=== PATIENT | female | born 1985 | race Caucasian/White ===

== ENCOUNTER 2017-06-28 08:25 | Emergency (ER) | payer OTHER ==
[2017-06-28 08:30] VITALS: BP 121/66; PULSE 96; RESP 16; TEMP 97.5
[2017-06-28] MEDS ORDERED: ACETAMINOPHEN IV (For NPO) 1,000 MG in EMPTY BAG 1 BAG IVPB STA (08:43)
[2017-06-28] MEDS ORDERED: SODIUM CHLORIDE 0.9% 1,000 ML IV STA (08:43)
--- NOTE | 2017-06-28 08:45 | ED ---
General Adult HPI - General Chief complaint: Vaginal Bleeding Stated complaint: Vaginal Bleeding Time Seen by Provider: 06/28/17 08:39 Source: patient, RN notes reviewed Mode of arrival: ambulatory Limitations: no limitations - History of Present Illness Initial comments: patient 31-year-old female who presents emergency room today with a chief complaint of vaginal bleeding 3 months. She does admit that she had a miscarriage. She states she was seen at [facility] at the time. She states that she was never able to follow-up with OB. She states been bleeding since that time. She states the last few days she's noticed some symptoms of dysuria. She states it hurts when she urinates. She has began to feel some lower back discomfort that is increased last night into this morning. Patient denies any other complaints or symptoms. Patient denies any recent fever, chills, shortness of breath, chest pain, vomiting, numbness or tingling, constipation or diarrhea, headaches or visual changes, or any other complaints. - Related Data Home Medications Medication Instructions Recorded Confirmed Control 1 tab PO DAILY 06/28/17 06/28/17 Diazepam [Valium] 10 mg PO DAILY PRN 06/28/17 06/28/17 PARoxetine [Paxil] 20 mg PO DAILY 06/28/17 06/28/17 hydrOXYzine PAMOATE [Vistaril] 50 mg PO HS 06/28/17 06/28/17 Previous Rx's Medication Instructions Recorded Ibuprofen [Motrin] 600 mg PO Q6HR PRN #40 day 06/28/17 Allergies Allergy/AdvReac Type Severity Reaction Status Date / Time No Known Allergies Allergy Verified 06/28/17 08:58 Review of Systems ROS Statement: Those systems with pertinent positive or pertinent negative responses have been documented in the HPI. ROS Other: All systems not noted in ROS Statement are negative. Past Medical History Past Medical History: Hypertension, Thyroid Disorder History of Any Multi-Drug Resistant Organisms: None Reported Past Surgical History: Tonsillectomy Past Psychological History: Anxiety Smoking Status: Current every day smoker Past Alcohol Use History: None Reported Past Drug Use History: Marijuana General Exam - General Exam Comments Initial Comments: General: The patient is awake and alert, in no distress, and does not appear acutely ill. Eye: Pupils are equal, round and reactive to light, extra-ocular movements are intact. No nystagmus. There is normal conjunctiva bilaterally. No signs of icterus. Ears, nose, mouth and throat: There are moist mucous membranes and no oral lesions. Neck: The neck is supple, there is no tenderness or JVD. Cardiovascular: There is a regular rate and rhythm. No murmur, rub or gallop is appreciated. Respiratory: Lungs are clear to auscultation, respirations are non-labored, breath sounds are equal. No wheezes, stridor, rales, or rhonchi. Gastrointestinal: neuro appears them. Normal bowel sounds. Soft on palpation. Patient does have tenderness suprapubic left lower quadrant. No rebound tenderness. Tender left right CVA. No guarding. Musculoskeletal: Normal ROM, no tenderness. Strength 5/5. Sensation intact. Pulses equal bilaterally 2+. Neurological: A&O x 3. CN II-XII intact, There are no obvious motor or sensory deficits. Coordination appears grossly intact. Speech is normal. Skin: Skin is warm and dry and no rashes or lesions are noted. Psychiatric: Cooperative, appropriate mood & affect, normal judgment. Limitations: no limitations Course Vital Signs 06/28/17 08:26 Temperature 97.5 F L Pulse Rate 96 Respiratory 16 Rate Blood Pressure 121/66 O2 Sat by Pulse 100 Oximetry Medical Decision Making - Medical Decision Making Patient's labs been reviewed are unremarkable. Patient's ultrasound shows over and cyst on the left. No sign of torsion. Patient urinalysis does show some blood. She said some vaginal bleeding. There is no sign of infection. Patient resting comfortably. She feels couple following up with AUTOMATIC DRILLING MACHINE OPERATOR. Patient. To return if symptoms increase or worsen or for any other concerns. - Lab Data Result diagrams: 06/28/17 09:06 06/28/17 09:06 Lab Results 06/28/17 06/28/17 06/28/17 Range/Units 09:06 09:06 09:06 WBC 8.4 (3.8-10.6) k/uL RBC 4.49 (3.80-5.40) m/uL Hgb 11.7 (11.4-16.0) gm/dL Hct 37.4 (34.0-46.0) % MCV 83.2 (80.0-100.0) fL MCH 26.0 (25.0-35.0) pg MCHC 31.3 (31.0-37.0) g/dL RDW 16.6 H (11.5-15.5) % Plt Count 329 (150-450) k/uL Neutrophils % 76 % Lymphocytes % 18 % Monocytes % 4 % Eosinophils % 1 % Basophils % 0 % Neutrophils # 6.3 (1.3-7.7) k/uL Lymphocytes # 1.5 (1.0-4.8) k/uL Monocytes # 0.3 (0-1.0) k/uL Eosinophils # 0.1 (0-0.7) k/uL Basophils # 0.0 (0-0.2) k/uL Anisocytosis Slight Sodium 141 (137-145) mmol/L Potassium 4.0 (3.5-5.1) mmol/L Chloride 111 H (98-107) mmol/L Carbon Dioxide 21 L (22-30) mmol/L Anion Gap 9 mmol/L BUN 16 (7-17) mg/dL Creatinine 0.64 (0.52-1.04) mg/dL Est GFR (MDRD) Af Amer >60 (>60 ml/min/1.73 sqM) Est GFR (MDRD) Non-Af >60 (>60 ml/min/1.73 sqM) Glucose 101 H (74-99) mg/dL Calcium 9.8 (8.4-10.2) mg/dL Total Bilirubin 0.2 (0.2-1.3) mg/dL AST 22 (14-36) U/L ALT 16 (9-52) U/L Alkaline Phosphatase 61 (38-126) U/L Total Protein 7.5 (6.3-8.2) g/dL Albumin 4.4 (3.5-5.0) g/dL Lipase 68 (23-300) U/L Urine Color Urine Appearance (Clear) Urine pH (5.0-8.0) Ur Specific [place] (1.001-1.035) Urine Protein (Negative) Urine Glucose (UA) (Negative) Urine Ketones (Negative) Urine Blood (Negative) Urine Nitrite (Negative) Urine Bilirubin (Negative) Urine Urobilinogen (<2.0) mg/dL Ur Leukocyte Esterase (Negative) Urine RBC (0-5) /hpf Urine WBC (0-5) /hpf Ur Squamous Epith Cells (0-4) /hpf Urine Mucus (None) /hpf Urine HCG, Qual Not Detected (Not Detectd) 06/28/17 Range/Units 09:06 WBC (3.8-10.6) k/uL RBC (3.80-5.40) m/uL Hgb (11.4-16.0) gm/dL Hct (34.0-46.0) % MCV (80.0-100.0) fL MCH (25.0-35.0) pg MCHC (31.0-37.0) g/dL RDW (11.5-15.5) % Plt Count (150-450) k/uL Neutrophils % % Lymphocytes % % Monocytes % % Eosinophils % % Basophils % % Neutrophils # (1.3-7.7) k/uL Lymphocytes # (1.0-4.8) k/uL Monocytes # (0-1.0) k/uL Eosinophils # (0-0.7) k/uL Basophils # (0-0.2) k/uL Anisocytosis Sodium (137-145) mmol/L Potassium (3.5-5.1) mmol/L Chloride (98-107) mmol/L Carbon Dioxide (22-30) mmol/L Anion Gap mmol/L BUN (7-17) mg/dL Creatinine (0.52-1.04) mg/dL Est GFR (MDRD) Af Amer (>60 ml/min/1.73 sqM) Est GFR (MDRD) Non-Af (>60 ml/min/1.73 sqM) Glucose (74-99) mg/dL Calcium (8.4-10.2) mg/dL Total Bilirubin (0.2-1.3) mg/dL AST (14-36) U/L ALT (9-52) U/L Alkaline Phosphatase (38-126) U/L Total Protein (6.3-8.2) g/dL Albumin (3.5-5.0) g/dL Lipase (23-300) U/L Urine Color Yellow Urine Appearance Cloudy H (Clear) Urine pH 6.5 (5.0-8.0) Ur Specific [place] 1.024 (1.001-1.035) Urine Protein 1+ H (Negative) Urine Glucose (UA) Negative (Negative) Urine Ketones Trace H (Negative) Urine Blood Large H (Negative) Urine Nitrite Negative (Negative) Urine Bilirubin Negative (Negative) Urine Urobilinogen 2.0 (<2.0) mg/dL Ur Leukocyte Esterase Negative (Negative) Urine RBC 62 H (0-5) /hpf Urine WBC 1 (0-5) /hpf Ur Squamous Epith Cells 8 H (0-4) /hpf Urine Mucus Occasional H (None) /hpf Urine HCG, Qual (Not Detectd) Disposition Clinical Impression: Dysfunctional uterine bleeding Disposition: HOME SELF-CARE Condition: Good Instructions: Dysfunctional Uterine Bleeding (ED) Additional Instructions: Please use medication as discussed. Please follow-up with AUTOMATIC DRILLING MACHINE OPERATOR/family doctor in the next 2 days of symptoms have not improved. Please return to emergency room if the symptoms increase or worsen or for any other concerns. Prescriptions: Ibuprofen [Motrin] 600 mg PO Q6HR PRN #40 day PRN Reason: Pain Referrals: Tomas Mcfarland MD [Primary Care Provider] - 1-2 days Serena Ramirez DO [Doctor of Osteopathic Medicine] - 1-2 days Time of Disposition: 10:22
[2017-06-28 09:16] LABS: Anisocytosis Slight; Basophils % (A) 0 %; CH 26.1; CHCM 31.6; Eosinophils # (A) 0.1 k/uL (0-0.7); Eosinophils % (A) 1 %; HCT 37.4 % (34.0-46.0); HDW 2.38; HGB 11.7 gm/dL (11.4-16.0); Luc # (Auto) 0.12; Luc % (Auto) 1; Lymphocytes # (A) 1.5 k/uL (1.0-4.8); Lymphocytes % (A) 18 %; MCHC 31.3 g/dL (31.0-37.0); MCV 83.2 fL (80.0-100.0); Mean Platelet Volume 7.8; Monocytes # (A) 0.3 k/uL (0-1.0); Monocytes % (A) 4 %; Neutrophils # (A) 6.3 k/uL (1.3-7.7); Neutrophils % (A) 76 %; RBC 4.49 m/uL (3.80-5.40); RDW 16.6 % (11.5-15.5); WBC 8.4 k/uL (3.8-10.6); WBC (Perox) 8.44
[2017-06-28 09:25] LABS: ALT 16 U/L (9-52); AST 22 U/L (14-36); Alkaline Phosphatase 61 U/L (38-126); Anion Gap 9 mmol/L; Blood Urea Nitrogen 16 mg/dL (7-17); Calcium 9.8 mg/dL (8.4-10.2); Carbon Dioxide 21 mmol/L (22-30); Chloride 111 mmol/L (98-107); Glucose 101 mg/dL (74-99); Non-African American GFR(MDRD) >60 (>60 ml/min/1.73 sqM); Sodium 141 mmol/L (137-145); Total Bilirubin 0.2 mg/dL (0.2-1.3); Total Protein 7.5 g/dL (6.3-8.2)
[2017-06-28 09:27] LABS: Appearance,Urine Cloudy (Clear); Bilirubin,Urine Negative (Negative); Glucose,Urine (UA) Negative (Negative); Ketones,Urine Trace (Negative); Leukocyte Esterase,Urine Negative (Negative); Mucus,Urine Occasional /hpf; Nitrite,Urine Negative (Negative); PH, Urine 6.5 (5.0-8.0); Particle Count 5138; Protein,Urine 1+ (Negative); RBC,Urine 62 /hpf (0-5); Specific Gravity,Urine 1.024 (1.001-1.035); Squamous Epithelial Cell,Urine 8 /hpf (0-4); UA Billing (MACRO vs. MICRO) MICRO; WBC,Urine 1 /hpf (0-5)
--- NOTE | 2017-06-28 10:13 | US ---
EXAMINATION TYPE: US transvaginal DATE OF EXAM: 06/28/2017 COMPARISON: Previous dated 07/18/2017 CLINICAL HISTORY: pain. Patient states having a miscarriage x 3 months ago- no D&C Patient states st arting control after the bleeding as stopped for 2 days. Patient states bleeding every morning since miscarriage but more so today. TECHNIQUE: Transvaginal (TV) Date of LMP: Unknown EXAM MEASUREMENTS: Uterus: 7.0 x 3.8 x 3.3 cm Endometrial Stripe: 0.4 cm Right Ovary: 2.8 x 1.8 x 1.7 cm Left Ovary: 4.5 x 2.9 x 2.5 cm 1. Uterus: Anteverted wnl 2. Endometrium: wnl 3. Right Ovary: Follicles seen 4. Left Ovary: cystic appearing lesion identified = 3.3 x 3.1 x 2.2 cm Spectral, color and waveform doppler imaging shows good arterial and venous flow within the ovaries ; there is no evidence for ovarian torsion. 5. Bilateral Adnexa: wnl, peristalsing bowel gas 6. Posterior cul-de-sac: no free fluid IMPRESSION: There is been interval development of a large cystic left ovarian lesion. Some internal d aughter cysts suspected. Consider CONSUMER AFFAIRS MANAGER consult, follow-up.
== END 2017-06-28 10:30 | disposition home or self-care (01) ==
LOC: EC 08:25
DX: N93.8 Other specified abnormal uterine and vaginal bleeding (principal); N83.202 Unspecified ovarian cyst, left side; R30.0 Dysuria; I10 Essential (primary) hypertension; E07.9 Disorder of thyroid, unspecified; F41.9 Anxiety disorder, unspecified; F17.200 Nicotine dependence, unspecified, uncomplicated; Z79.3 Long term (current) use of hormonal contraceptives; Z79.899 Other long term (current) drug therapy
CPT/HCPCS: 36415; 80053; 83690; 85025; 81001; 81025; 87086; 93975; 76830; 99284; 96365; 96361; J0131

== ENCOUNTER 2017-08-14 10:25 | Emergency (ER) | payer OTHER ==
[2017-08-14 10:30] VITALS: PULSE 68
[2017-08-14] MEDS ORDERED: SODIUM CHLORIDE 0.9% 500 ML IV STA (10:55)
[2017-08-14] MEDS ORDERED: KETOROLAC 30 MG/ML 1 ML VIAL IVP STA (10:55)
--- NOTE | 2017-08-14 11:08 | ED ---
General Adult HPI - General Chief complaint: Abdominal Pain Stated complaint: Ovary pain Time Seen by Provider: 08/14/17 10:31 Source: patient, RN notes reviewed Mode of arrival: ambulatory Limitations: no limitations - History of Present Illness Initial comments: 31-year-old female presents for left lower quadrant pelvic pain. Patient states that she was seen here about a month ago and was diagnosed with a cyst on her left ovary. Patient states that her pain was doing okay but then over the last few days seems to be worsening. It just discontinued pain to the left lower quadrant. She states is been no nausea no vomiting no fever chills with this. There's been no cough cold or runny nose. Patient is just continued to have this discomfort so she thought that she should be evaluated. Patient denies any recent fever, chills, shortness of breath, chest pain, back pain, nausea vomiting, numbness or tingling, dysuria or hematuria, constipation or diarrhea, headaches or visual changes, or any other current symptoms. - Related Data Home Medications Medication Instructions Recorded Confirmed Diazepam [Valium] 5 mg PO DAILY PRN 06/28/17 08/14/17 PARoxetine [Paxil] 20 mg PO DAILY 06/28/17 08/14/17 hydrOXYzine PAMOATE [Vistaril] 50 mg PO HS 06/28/17 08/14/17 Previous Rx's Medication Instructions Recorded Dicyclomine [Bentyl] 10 mg PO TID #20 capsule 08/14/17 Allergies Allergy/AdvReac Type Severity Reaction Status Date / Time No Known Allergies Allergy Verified 08/14/17 10:58 Review of Systems ROS Statement: Those systems with pertinent positive or pertinent negative responses have been documented in the HPI. ROS Other: All systems not noted in ROS Statement are negative. Past Medical History Past Medical History: Hypertension, Thyroid Disorder History of Any Multi-Drug Resistant Organisms: None Reported Past Surgical History: Tonsillectomy Past Psychological History: Anxiety Smoking Status: Current every day smoker Past Alcohol Use History: None Reported Past Drug Use History: Marijuana General Exam - General Exam Comments Initial Comments: General: The patient is awake and alert, in no distress, and does not appear acutely ill. Eye: Pupils are equal, round and reactive to light. Ears, nose, mouth and throat: There are moist mucous membranes. Neck: The neck is supple, there is no tenderness. Cardiovascular: There is a regular rate and rhythm. No murmur, rub or gallop is appreciated. Respiratory: Lungs are clear to auscultation, respirations are non-labored, breath sounds are equal. No wheezes, stridor, rales, or rhonchi. Gastrointestinal: Soft, non-distended, tenderness in left lower quadrant of the abdomen without masses or organomegaly noted. There is no rebound or guarding present. No CVA tenderness. Bowel sounds are unremarkable. Back: There is no tenderness to palpation in the midline. There is no obvious deformity. No rashes noted. Musculoskeletal: Normal ROM, no tenderness, There is no pedal edema. There is no calf tenderness or swelling. Sensation intact. Pulses equal bilaterally 2+. Neurological: CN II-XII intact, There are no obvious motor or sensory deficits. Coordination appears grossly intact. Speech is normal. Skin: Skin is warm and dry and no rashes or lesions are noted. Psychiatric: Cooperative, appropriate mood & affect, normal judgment. Limitations: no limitations Course Vital Signs 08/14/17 10:27 Temperature 98 F Pulse Rate 68 Respiratory 16 Rate Blood Pressure 140/75 O2 Sat by Pulse 100 Oximetry Medical Decision Making - Medical Decision Making 31-year-old female presents for pelvic pain with history of ovarian cysts. At this time patient's ultrasound and CT are reviewed and negative. At this time we did discuss her results. We will send urine for culture. We did discuss return parameters and follow-up and all questions. The patient family stated the John they are in agreement this plan. All questions have been answered. They will be discharged. - Lab Data Result diagrams: 08/14/17 11:10 08/14/17 11:10 Lab Results 08/14/17 08/14/17 08/14/17 Range/Units 10:55 10:55 11:10 WBC 11.0 H (3.8-10.6) k/uL RBC 4.68 (3.80-5.40) m/uL Hgb 12.5 (11.4-16.0) gm/dL Hct 41.0 (34.0-46.0) % MCV 87.6 (80.0-100.0) fL MCH 26.7 (25.0-35.0) pg MCHC 30.5 L (31.0-37.0) g/dL RDW 15.6 H (11.5-15.5) % Plt Count 540 H (150-450) k/uL Neutrophils % 80 % Lymphocytes % 13 % Monocytes % 4 % Eosinophils % 1 % Basophils % 1 % Neutrophils # 8.7 H (1.3-7.7) k/uL Lymphocytes # 1.4 (1.0-4.8) k/uL Monocytes # 0.4 (0-1.0) k/uL Eosinophils # 0.1 (0-0.7) k/uL Basophils # 0.1 (0-0.2) k/uL Hypochromasia Slight Sodium (137-145) mmol/L Potassium (3.5-5.1) mmol/L Chloride (98-107) mmol/L Carbon Dioxide (22-30) mmol/L Anion Gap mmol/L BUN (7-17) mg/dL Creatinine (0.52-1.04) mg/dL Est GFR (MDRD) Af Amer (>60 ml/min/1.73 sqM) Est GFR (MDRD) Non-Af (>60 ml/min/1.73 sqM) Glucose (74-99) mg/dL Calcium (8.4-10.2) mg/dL Total Bilirubin (0.2-1.3) mg/dL AST (14-36) U/L ALT (9-52) U/L Alkaline Phosphatase (38-126) U/L Total Protein (6.3-8.2) g/dL Albumin (3.5-5.0) g/dL Urine Color Yellow Urine Appearance Clear (Clear) Urine pH 6.5 (5.0-8.0) Ur Specific [place] 1.019 (1.001-1.035) Urine Protein Negative (Negative) Urine Glucose (UA) Negative (Negative) Urine Ketones Negative (Negative) Urine Blood Negative (Negative) Urine Nitrite Negative (Negative) Urine Bilirubin Negative (Negative) Urine Urobilinogen <2.0 (<2.0) mg/dL Ur Leukocyte Esterase Negative (Negative) Urine HCG, Qual Not Detected (Not Detectd) 08/14/17 Range/Units 11:10 WBC (3.8-10.6) k/uL RBC (3.80-5.40) m/uL Hgb (11.4-16.0) gm/dL Hct (34.0-46.0) % MCV (80.0-100.0) fL MCH (25.0-35.0) pg MCHC (31.0-37.0) g/dL RDW (11.5-15.5) % Plt Count (150-450) k/uL Neutrophils % % Lymphocytes % % Monocytes % % Eosinophils % % Basophils % % Neutrophils # (1.3-7.7) k/uL Lymphocytes # (1.0-4.8) k/uL Monocytes # (0-1.0) k/uL Eosinophils # (0-0.7) k/uL Basophils # (0-0.2) k/uL Hypochromasia Sodium 142 (137-145) mmol/L Potassium 4.9 (3.5-5.1) mmol/L Chloride 108 H (98-107) mmol/L Carbon Dioxide 22 (22-30) mmol/L Anion Gap 12 mmol/L BUN 16 (7-17) mg/dL Creatinine 0.54 (0.52-1.04) mg/dL Est GFR (MDRD) Af Amer >60 (>60 ml/min/1.73 sqM) Est GFR (MDRD) Non-Af >60 (>60 ml/min/1.73 sqM) Glucose 90 (74-99) mg/dL Calcium 10.0 (8.4-10.2) mg/dL Total Bilirubin 0.4 (0.2-1.3) mg/dL AST 27 (14-36) U/L ALT 13 (9-52) U/L Alkaline Phosphatase 93 (38-126) U/L Total Protein 8.1 (6.3-8.2) g/dL Albumin 4.7 (3.5-5.0) g/dL Urine Color Urine Appearance (Clear) Urine pH (5.0-8.0) Ur Specific [place] (1.001-1.035) Urine Protein (Negative) Urine Glucose (UA) (Negative) Urine Ketones (Negative) Urine Blood (Negative) Urine Nitrite (Negative) Urine Bilirubin (Negative) Urine Urobilinogen (<2.0) mg/dL Ur Leukocyte Esterase (Negative) Urine HCG, Qual (Not Detectd) - Radiology Data Radiology results: report reviewed, image reviewed Disposition Clinical Impression: Left sided abdominal pain Disposition: HOME SELF-CARE Condition: Stable Instructions: Abdominal Pain (ED) Additional Instructions: Please use medication as discussed. Please follow up with family doctor if symptoms have not improved over the next two days. Please return to the emergency room if your symptoms increase or worsen or for any other concerns. Prescriptions: Dicyclomine [Bentyl] 10 mg PO TID #20 capsule Referrals: Tomas Mcfarland MD [Primary Care Provider] - 1-2 days Time of Disposition: 13:28
[2017-08-14 11:28] LABS: Appearance,Urine Clear (Clear); Bilirubin,Urine Negative (Negative); Blood,Urine Negative (Negative); Color,Urine Yellow; Glucose,Urine (UA) Negative (Negative); Ketones,Urine Negative (Negative); Leukocyte Esterase,Urine Negative (Negative); Nitrite,Urine Negative (Negative); PH, Urine 6.5 (5.0-8.0); Protein,Urine Negative (Negative); Specific Gravity,Urine 1.019 (1.001-1.035); Urobilinogen,Urine <2.0 mg/dL (<2.0)
[2017-08-14 11:43] LABS: Basophils # (A) 0.1 k/uL (0-0.2); Basophils % (A) 1 %; Eosinophils # (A) 0.1 k/uL (0-0.7); Eosinophils % (A) 1 %; HGB 12.5 gm/dL (11.4-16.0); Hypochromasia Slight; Lymphocytes # (A) 1.4 k/uL (1.0-4.8); Lymphocytes % (A) 13 %; MCH 26.7 pg (25.0-35.0); MCHC 30.5 g/dL (31.0-37.0); MCV 87.6 fL (80.0-100.0); Mean Platelet Volume 6.5; Monocytes # (A) 0.4 k/uL (0-1.0); Monocytes % (A) 4 %; Neutrophils # (A) 8.7 k/uL (1.3-7.7); Neutrophils % (A) 80 %; Platelet Count 540 k/uL (150-450); RBC 4.68 m/uL (3.80-5.40); RDW 15.6 % (11.5-15.5)
[2017-08-14 11:46] LABS: ALT 13 U/L (9-52); AST 27 U/L (14-36); Albumin 4.7 g/dL (3.5-5.0); Alkaline Phosphatase 93 U/L (38-126); Anion Gap 12 mmol/L; Blood Urea Nitrogen 16 mg/dL (7-17); Carbon Dioxide 22 mmol/L (22-30); Chloride 108 mmol/L (98-107); Glucose 90 mg/dL (74-99); Potassium 4.9 mmol/L (3.5-5.1); Sodium 142 mmol/L (137-145); Total Bilirubin 0.4 mg/dL (0.2-1.3); Total Protein 8.1 g/dL (6.3-8.2)
--- NOTE | 2017-08-14 11:53 | US ---
EXAMINATION TYPE: US transvaginal DATE OF EXAM: 08/14/2017 COMPARISON: CLINICAL HISTORY: Pain. Left side pain, hx of O cyst TECHNIQUE: Transvaginal (TV) Date of LMP: 08/05/2017, EXAM MEASUREMENTS: Uterus: 7.3 x 4.0 x 3.3 cm Endometrial Stripe: 0.5 cm Right Ovary: 3.0 x 1.6 x 2.4 cm Left Ovary: 3.1 x 2.2 x 2.4 cm 1. Uterus: Anteverted wnl 2. Endometrium: wnl 3. Right Ovary: follicles seen. Largest= 1.3 cm. 4. Left Ovary: follicles seen. Previous cyst not seen. Spectral, color and waveform doppler imaging shows good arterial and venous flow within the ovaries ; there is no evidence for ovarian torsion. 5. Bilateral Adnexa: wnl 6. Posterior cul-de-sac: no free fluid IMPRESSION: Resolution of the previously seen left ovarian cysts. Bilateral follicular changes are se en of the ovaries with the largest most dominant follicle in the right measuring only 1.3 cm. No curr ent evidence of ovarian torsion.
[2017-08-14] MEDS ORDERED: RX INFO: IV CONTRAST WAS GIVEN 1 EACH MISC MISCELLANE PRN (12:12)
[2017-08-14] MEDS ORDERED: DICYCLOMINE 10 MG/ML 2 ML AMP IM STA (12:45)
--- NOTE | 2017-08-14 13:21 | CT ---
EXAMINATION TYPE: CT abdomen pelvis w con DATE OF EXAM: 08/14/2017 COMPARISON: NONE INDICATION: LLQ pain. Possible ovarian cyst. DLP: 386.70 mGycm, Automated exposure control for dose reduction was used. CONTRAST: 100 ml mL of Omnipaque 300. Study performed without Oral Contrast TECHNIQUE: Axial images were obtained from above the diaphragm to the pubic rami in the axial plane a t 5 mm thick sections. Reconstructed images are reviewed on the computer in the coronal plane. FINDINGS: Limited CT sections are obtained the lung bases. There is a right middle lobe infiltrate. Correlate for atelectasis. Pneumonia could be considered within the differential. Underlying mass at the infrah ilar regions not excluded but would be considered unusual. This should be followed to clearing.. CT ABDOMEN: Liver: Normal Spleen: Normal Pancreas: Normal Adrenal glands: The adrenal glands are normal. Gallbladder: Normal Kidneys: No masses are evident. No hydronephrosis is present. No cysts are present. Delayed images were obtained through the kidneys, which remain unremarkable. Aorta: Normal Inferior vena cava: Normal. CT PELVIS: Loops of bowel within the abdomen and pelvis are normal. Study is without oral contrast limiting the evaluation. Appendix: Not clearly identified. There is a possible partial visualization of the tip of the appendi x extending towards the right adnexal region. No suspicious tubular structures or inflammatory change s evident. Clinical management of any suspected appendicitis will be required. Urinary bladder: Normal. Genitourinary structures: Uterus is unremarkable. Follicles are present bilaterally. An enlarged ovar jaime cyst is not identified. Very minimal fluid may be within the right posterior pelvis. Free fluid i s not otherwise identified. Osseous structures: No suspicious lytic or sclerotic lesions. IMPRESSIONS: 1. Atelectasis right middle lobe. Pneumonia could be considered within the differential. Underlying s oft tissue within the infrahilar region is considered unlikely although this should be followed to cl earing for confirmation. 2. Adnexal follicles. 3. Minimal free fluid right hemipelvis can be physiologic.
[2017-08-14 13:35] VITALS: BP 122/63; RESP 14; TEMP 98.5
== END 2017-08-14 13:42 | disposition home or self-care (01) ==
LOC: EC 10:25
DX: R10.2 Pelvic and perineal pain (principal); F41.9 Anxiety disorder, unspecified; F17.200 Nicotine dependence, unspecified, uncomplicated; Z79.899 Other long term (current) drug therapy
CPT/HCPCS: 36415; 80053; 85025; 81003; 81025; 93975; 76830; 74177; 99284; 96374; 96372; J0500; J1885; Q9967

== ENCOUNTER 2017-08-19 11:11 | Emergency (ER) | payer OTHER ==
[2017-08-19 12:22] LABS: Appearance,Urine Clear (Clear); Bilirubin,Urine Negative (Negative); Blood,Urine Negative (Negative); Color,Urine Colorless; Glucose,Urine (UA) Negative (Negative); Ketones,Urine Negative (Negative); Leukocyte Esterase,Urine Negative (Negative); Nitrite,Urine Negative (Negative); PH, Urine 6.5 (5.0-8.0); Protein,Urine Negative (Negative); Specific Gravity,Urine 1.003 (1.001-1.035); Urobilinogen,Urine <2.0 mg/dL (<2.0)
[2017-08-19] MEDS ORDERED: SODIUM CHLORIDE 0.9% 1,000 ML IV STA (12:33)
[2017-08-19] MEDS ORDERED: ORPHENADRINE 30 MG/ML 2 ML VIAL IVP STA (12:57)
[2017-08-19] MEDS ORDERED: ONDANSETRON 4 MG/2 ML VIAL IVP STA (12:57)
--- NOTE | 2017-08-19 13:00 | ED ---
Abdominal Pain HPI - General Chief Complaint: Abdominal Pain Stated Complaint: Abdominal pain Time Seen by Provider: 08/19/17 12:25 Source: patient, RN notes reviewed Mode of arrival: ambulatory Limitations: no limitations - History of Present Illness Initial Comments: This a 31-year-old female presents emergency Department with multiple complaints. Patient states she was seen in 3 days ago for abdominal pain, back pain. Patient had ultrasound, CT was given Bentyl to go home with. Patient's labwork unremarkable at that time. Patient states that this pain seems to be getting worse and states that she has such severe pain she feels that she cannot pass out. Patient states she also has neck pain at this time. Patient states pain is worse with movement states that she feels that she has some muscle spasms. Patient denies any fever, chills, nausea, vomiting. She denies any headache or dizziness. Denies chest pain or shortness of breath. - Related Data Home Medications Medication Instructions Recorded Confirmed Diazepam [Valium] 5 mg PO DAILY PRN 06/28/17 08/19/17 PARoxetine [Paxil] 20 mg PO DAILY 06/28/17 08/19/17 hydrOXYzine PAMOATE [Vistaril] 50 mg PO HS 06/28/17 08/19/17 Previous Rx's Medication Instructions Recorded Dicyclomine [Bentyl] 10 mg PO TID #20 capsule 08/14/17 Cyclobenzaprine [Flexeril] 10 mg PO TID PRN #15 tab 08/19/17 Ibuprofen [Motrin] 600 mg PO Q8HR PRN #30 tab 08/19/17 Allergies Allergy/AdvReac Type Severity Reaction Status Date / Time No Known Allergies Allergy Verified 08/19/17 12:25 Review of Systems ROS Statement: Those systems with pertinent positive or pertinent negative responses have been documented in the HPI. ROS Other: All systems not noted in ROS Statement are negative. Past Medical History Past Medical History: Hypertension, Thyroid Disorder History of Any Multi-Drug Resistant Organisms: None Reported Past Surgical History: Tonsillectomy Past Psychological History: Anxiety Smoking Status: Current every day smoker Past Alcohol Use History: None Reported Past Drug Use History: Marijuana General Exam Limitations: no limitations General appearance: alert, in no apparent distress Head exam: Present: atraumatic, normocephalic, normal inspection Eye exam: Present: normal appearance, PERRL, EOMI. Absent: scleral icterus, conjunctival injection, periorbital swelling ENT exam: Present: normal exam, normal oropharynx, mucous membranes moist, TM's normal bilaterally Neck exam: Present: normal inspection, tenderness (Mild tenderness of the paraspinal), full ROM. Absent: meningismus, lymphadenopathy Respiratory exam: Present: normal lung sounds bilaterally. Absent: respiratory distress, wheezes, rales, rhonchi, stridor Cardiovascular Exam: Present: regular rate, normal rhythm, normal heart sounds. Absent: systolic murmur, diastolic murmur, rubs, gallop, clicks GI/Abdominal exam: Present: soft, normal bowel sounds. Absent: distended, tenderness, guarding, rebound, rigid Extremities exam: Present: normal inspection, full ROM, normal capillary refill. Absent: tenderness, pedal edema, joint swelling, calf tenderness Back exam: Present: normal inspection, full ROM. Absent: tenderness, paraspinal tenderness, vertebral tenderness Neurological exam: Present: alert, oriented X3, CN II-XII intact, reflexes normal. Absent: motor sensory deficit Skin exam: Present: warm, dry, intact, normal color. Absent: rash Course Vital Signs 08/19/17 08/19/17 11:24 13:36 Temperature 97.5 F L Pulse Rate 89 60 Respiratory 22 18 Rate Blood Pressure 122/60 115/53 O2 Sat by Pulse 100 98 Oximetry Medical Decision Making - Medical Decision Making 31-year-old female presented emergency department for back pain, neck pain. Patient appears to have muscle spasms x-rays reviewed no acute abnormality patient has CT and blood work yesterday also. Patient we discharged with muscle relaxers and anti-inflammatories. Return parameters were discussed. - Lab Data Result diagrams: 08/19/17 12:45 08/19/17 12:45 Lab Results 08/19/17 08/19/17 08/19/17 Range/Units 11:20 11:20 12:45 WBC (3.8-10.6) k/uL RBC (3.80-5.40) m/uL Hgb (11.4-16.0) gm/dL Hct (34.0-46.0) % MCV (80.0-100.0) fL MCH (25.0-35.0) pg MCHC (31.0-37.0) g/dL RDW (11.5-15.5) % Plt Count (150-450) k/uL Neutrophils % % Lymphocytes % % Monocytes % % Eosinophils % % Basophils % % Neutrophils # (1.3-7.7) k/uL Lymphocytes # (1.0-4.8) k/uL Monocytes # (0-1.0) k/uL Eosinophils # (0-0.7) k/uL Basophils # (0-0.2) k/uL Hypochromasia Anisocytosis Sodium 142 (137-145) mmol/L Potassium 5.3 H (3.5-5.1) mmol/L Chloride 110 H (98-107) mmol/L Carbon Dioxide 24 (22-30) mmol/L Anion Gap 8 mmol/L BUN 8 (7-17) mg/dL Creatinine 0.54 (0.52-1.04) mg/dL Est GFR (MDRD) Af Amer >60 (>60 ml/min/1.73 sqM) Est GFR (MDRD) Non-Af >60 (>60 ml/min/1.73 sqM) Glucose 84 (74-99) mg/dL Calcium 9.4 (8.4-10.2) mg/dL Total Bilirubin 0.5 (0.2-1.3) mg/dL AST 35 (14-36) U/L ALT 12 (9-52) U/L Alkaline Phosphatase 65 (38-126) U/L Troponin I (0.000-0.034) ng/mL Total Protein 6.8 (6.3-8.2) g/dL Albumin 3.9 (3.5-5.0) g/dL Amylase 75 (30-110) U/L Lipase 52 (23-300) U/L Urine Color Colorless Urine Appearance Clear (Clear) Urine pH 6.5 (5.0-8.0) Ur Specific [place] 1.003 (1.001-1.035) Urine Protein Negative (Negative) Urine Glucose (UA) Negative (Negative) Urine Ketones Negative (Negative) Urine Blood Negative (Negative) Urine Nitrite Negative (Negative) Urine Bilirubin Negative (Negative) Urine Urobilinogen <2.0 (<2.0) mg/dL Ur Leukocyte Esterase Negative (Negative) Urine HCG, Qual Not Detected (Not Detectd) 08/19/17 08/19/17 Range/Units 12:45 13:27 WBC 8.4 (3.8-10.6) k/uL RBC 4.22 (3.80-5.40) m/uL Hgb 11.2 L (11.4-16.0) gm/dL Hct 37.5 (34.0-46.0) % MCV 88.7 (80.0-100.0) fL MCH 26.5 (25.0-35.0) pg MCHC 29.8 L (31.0-37.0) g/dL RDW 17.0 H (11.5-15.5) % Plt Count 411 (150-450) k/uL Neutrophils % 74 % Lymphocytes % 16 % Monocytes % 5 % Eosinophils % 2 % Basophils % 0 % Neutrophils # 6.3 (1.3-7.7) k/uL Lymphocytes # 1.4 (1.0-4.8) k/uL Monocytes # 0.5 (0-1.0) k/uL Eosinophils # 0.2 (0-0.7) k/uL Basophils # 0.0 (0-0.2) k/uL Hypochromasia Marked Anisocytosis Slight Sodium (137-145) mmol/L Potassium (3.5-5.1) mmol/L Chloride (98-107) mmol/L Carbon Dioxide (22-30) mmol/L Anion Gap mmol/L BUN (7-17) mg/dL Creatinine (0.52-1.04) mg/dL Est GFR (MDRD) Af Amer (>60 ml/min/1.73 sqM) Est GFR (MDRD) Non-Af (>60 ml/min/1.73 sqM) Glucose (74-99) mg/dL Calcium (8.4-10.2) mg/dL Total Bilirubin (0.2-1.3) mg/dL AST (14-36) U/L ALT (9-52) U/L Alkaline Phosphatase (38-126) U/L Troponin I <0.012 (0.000-0.034) ng/mL Total Protein (6.3-8.2) g/dL Albumin (3.5-5.0) g/dL Amylase (30-110) U/L Lipase (23-300) U/L Urine Color Urine Appearance (Clear) Urine pH (5.0-8.0) Ur Specific [place] (1.001-1.035) Urine Protein (Negative) Urine Glucose (UA) (Negative) Urine Ketones (Negative) Urine Blood (Negative) Urine Nitrite (Negative) Urine Bilirubin (Negative) Urine Urobilinogen (<2.0) mg/dL Ur Leukocyte Esterase (Negative) Urine HCG, Qual (Not Detectd) Disposition Clinical Impression: Muscle spasms of neck, Back pain Disposition: HOME SELF-CARE Condition: Stable Instructions: Muscle Spasm (ED) Additional Instructions: Please return to the Emergency Department if symptoms worsen or any other concerns. Prescriptions: Cyclobenzaprine [Flexeril] 10 mg PO TID PRN #15 tab PRN Reason: Muscle Spasm Ibuprofen [Motrin] 600 mg PO Q8HR PRN #30 tab PRN Reason: Pain Referrals: Tomas Mcfarland MD [Primary Care Provider] - 1-2 days Time of Disposition: 14:49
[2017-08-19] MEDS ORDERED: PARoxetine 20 MG TAB PO STA (13:01)
[2017-08-19 13:04] LABS: Anisocytosis Slight; Basophils % (A) 0 %; Eosinophils # (A) 0.2 k/uL (0-0.7); Eosinophils % (A) 2 %; HCT 37.5 % (34.0-46.0); HGB 11.2 gm/dL (11.4-16.0); Hypochromasia Marked; Lymphocytes # (A) 1.4 k/uL (1.0-4.8); Lymphocytes % (A) 16 %; MCH 26.5 pg (25.0-35.0); MCHC 29.8 g/dL (31.0-37.0); MCV 88.7 fL (80.0-100.0); Mean Platelet Volume 7.7; Monocytes # (A) 0.5 k/uL (0-1.0); Monocytes % (A) 5 %; Neutrophils # (A) 6.3 k/uL (1.3-7.7); Neutrophils % (A) 74 %; Platelet Count 411 k/uL (150-450); RBC 4.22 m/uL (3.80-5.40); WBC 8.4 k/uL (3.8-10.6)
[2017-08-19 13:10] LABS: ALT 12 U/L (9-52); AST 35 U/L (14-36); Albumin 3.9 g/dL (3.5-5.0); Alkaline Phosphatase 65 U/L (38-126); Amylase 75 U/L (30-110); Anion Gap 8 mmol/L; Blood Urea Nitrogen 8 mg/dL (7-17); Calcium 9.4 mg/dL (8.4-10.2); Carbon Dioxide 24 mmol/L (22-30); Chloride 110 mmol/L (98-107); Glucose 84 mg/dL (74-99); Lipase 52 U/L (23-300); Potassium 5.3 mmol/L (3.5-5.1); Sodium 142 mmol/L (137-145); Total Bilirubin 0.5 mg/dL (0.2-1.3); Total Protein 6.8 g/dL (6.3-8.2)
[2017-08-19 13:37] VITALS: PULSE 60; RESP 18
--- NOTE | 2017-08-19 14:08 | XR ---
Cervical spine HISTORY: Neck pain 5 views of the cervical spine Loss of normal cervical lordosis may be due to muscle spasm. Cervical vertebral bodies show preserved height, alignment, and bone mineralization. Disc spaces and prevertebral soft tissues are normal. No significant foraminal encroachment. Patient is edentulous. IMPRESSION: Loss of lordosis.
[2017-08-19] MEDS ORDERED: KETOROLAC 30 MG/ML 1 ML VIAL IVP STA (14:45)
[2017-08-19 14:55] VITALS: BP 125/67; TEMP 98.7
== END 2017-08-19 15:01 | disposition home or self-care (01) ==
LOC: EC 11:11
DX: M62.830 Muscle spasm of back (principal); M62.838 Other muscle spasm; R10.9 Unspecified abdominal pain; F41.9 Anxiety disorder, unspecified; F17.200 Nicotine dependence, unspecified, uncomplicated; Z79.899 Other long term (current) drug therapy
CPT/HCPCS: 36415; 80053; 82150; 83690; 84484; 85025; 81003; 81025; 72050; 99284; 96374; 96375 ×2; 96361; J2360; J2405; J1885

== ENCOUNTER 2017-09-17 12:02 | Emergency (ER) | payer OTHER ==
[2017-09-17] MEDS ORDERED: ONDANSETRON 4 MG/2 ML VIAL IVP STA (12:56)
[2017-09-17] MEDS ORDERED: SODIUM CHLORIDE 0.9% 2,000 ML IV STA (12:56)
[2017-09-17] MEDS ORDERED: KETOROLAC 30 MG/ML 1 ML VIAL IVP STA (12:57)
[2017-09-17] MEDS ORDERED: IPRATROPIUM-ALBUTEROL 3 ML NEB INHALATION STA (12:57)
--- NOTE | 2017-09-17 12:59 | ED ---
Nausea/Vomiting/Diarrhea HPI - General Chief complaint: Nausea/Vomiting/Diarrhea Stated complaint: Flu Symptoms Time Seen by Provider: 09/17/17 12:11 Source: patient, RN notes reviewed, old records reviewed Mode of arrival: ambulatory Limitations: no limitations - History of Present Illness Initial comments: This patient is a 32-year-old female presents emergency department today chief complaint of multiple days of vomiting and diarrhea. She reports she feels very dehydrated and weak. Patient states that she has had no blood in her stools or vomit. She reports that she's also had a chronic cough that is been worse over the past month. She is a smoker. She reports she uses no inhalers. She states she feels chilled. She denies any specific localized abdominal pain. Patient denies any back pain. No vaginal symptoms including discharge or bleeding. Last menstrual cycle was approximately 3 weeks ago. She denies any chance of . She denies any significant medical or surgical history. Patient denied any melena or hematachezia, no hemataemesis. Patient denies any recent fever, chills, shortness of breath, chest pain, back pain, abdominal pain, nausea vomiting, numbness or tingling, dysuria or hematuria, constipation or diarrhea, headaches or visual changes, or any other current symptoms - Related Data Home Medications Medication Instructions Recorded Confirmed Diazepam [Valium] 5 mg PO DAILY PRN 06/28/17 09/17/17 PARoxetine [Paxil] 20 mg PO DAILY 06/28/17 09/17/17 hydrOXYzine PAMOATE [Vistaril] 50 mg PO HS 06/28/17 09/17/17 Previous Rx's Medication Instructions Recorded Albuterol Inhaler [Ventolin Hfa 1 - 2 puff INHALATION Q6HR PRN #1 09/17/17 Inhaler] inhaler Famotidine [Pepcid] 20 mg PO HS #20 tablet 09/17/17 Ondansetron Odt [Zofran Odt] 4 mg PO Q8HR PRN #12 tab 09/17/17 methylPREDNISolone Dose Pack 4 mg PO DIRECTED #21 package 09/17/17 [Medrol Dose Pack] Allergies Allergy/AdvReac Type Severity Reaction Status Date / Time No Known Allergies Allergy Verified 09/17/17 12:49 Review of Systems ROS Statement: Those systems with pertinent positive or pertinent negative responses have been documented in the HPI. ROS Other: All systems not noted in ROS Statement are negative. Past Medical History Past Medical History: Hypertension, Thyroid Disorder History of Any Multi-Drug Resistant Organisms: None Reported Past Surgical History: Tonsillectomy Past Psychological History: Anxiety Smoking Status: Current every day smoker Past Alcohol Use History: None Reported Past Drug Use History: Marijuana General Exam - General Exam Comments Initial Comments: This is a 32-year-old female. No distress. Limitations: no limitations General appearance: alert, in no apparent distress Head exam: Present: atraumatic, normocephalic, normal inspection Eye exam: Present: normal appearance, PERRL, EOMI. Absent: scleral icterus, conjunctival injection, periorbital swelling ENT exam: Present: normal exam, mucous membranes moist Neck exam: Present: normal inspection. Absent: tenderness, meningismus, lymphadenopathy Respiratory exam: Present: wheezes. Absent: normal lung sounds bilaterally, respiratory distress, rales, rhonchi, stridor Cardiovascular Exam: Present: regular rate, normal rhythm, normal heart sounds. Absent: systolic murmur, diastolic murmur, rubs, gallop, clicks GI/Abdominal exam: Present: soft, tenderness (Minimal left lower quadrant tenderness. No guarding or rebound tenderness.), normal bowel sounds. Absent: distended, guarding, rebound, rigid Back exam: Present: normal inspection Neurological exam: Present: alert, oriented X3, CN II-XII intact Psychiatric exam: Present: normal affect, normal mood Skin exam: Present: warm, dry, intact, normal color. Absent: rash Course Vital Signs 09/17/17 09/17/17 09/17/17 12:06 13:23 13:35 Temperature 98.0 F Pulse Rate 75 76 78 Respiratory 18 Rate Blood Pressure 129/78 O2 Sat by Pulse 100 Oximetry 09/17/17 14:42 Temperature Pulse Rate 82 Respiratory 19 Rate Blood Pressure O2 Sat by Pulse 97 Oximetry Medical Decision Making - Medical Decision Making This patient is a 32-year-old female presents emergency department today chief complaint of multiple days of vomiting. She reports she feels very tired and weak. She does have some mild abdominal discomfort. At this time patient patient also reports having a chronic cough for the past month. She did have a mild wheeze noted initially. Patient is given a DuoNeb treatment improvement of her wheezing. Chest x-ray was reviewed and normal. Clearing of previous pneumonia. Patient's labwork was reviewed and all within normal limits. She is given a 2 L bolus. At this time patient is reevaluated reports she is feeling Better. I will discharge her with a prescription for nausea medicine and diarrhea medicine. I'll start the patient on albuterol inhaler and steroids. I also will put the patient on Pepcid daily. I discussed following up with primary care provider and return parameters were discussed. She does request a work note. - Lab Data Result diagrams: 09/17/17 13:14 09/17/17 13:14 Lab Results 09/17/17 09/17/17 09/17/17 Range/Units 13:14 13:14 13:14 WBC 7.6 (3.8-10.6) k/uL RBC 3.86 (3.80-5.40) m/uL Hgb 10.5 L (11.4-16.0) gm/dL Hct 34.5 (34.0-46.0) % MCV 89.3 (80.0-100.0) fL MCH 27.3 (25.0-35.0) pg MCHC 30.6 L (31.0-37.0) g/dL RDW 15.5 (11.5-15.5) % Plt Count 305 (150-450) k/uL Neutrophils % 61 % Lymphocytes % 28 % Monocytes % 5 % Eosinophils % 3 % Basophils % 1 % Neutrophils # 4.7 (1.3-7.7) k/uL Lymphocytes # 2.1 (1.0-4.8) k/uL Monocytes # 0.4 (0-1.0) k/uL Eosinophils # 0.2 (0-0.7) k/uL Basophils # 0.0 (0-0.2) k/uL Hypochromasia Slight Sodium 142 (137-145) mmol/L Potassium 3.8 (3.5-5.1) mmol/L Chloride 109 H (98-107) mmol/L Carbon Dioxide 25 (22-30) mmol/L Anion Gap 8 mmol/L BUN 13 (7-17) mg/dL Creatinine 0.60 (0.52-1.04) mg/dL Est GFR (MDRD) Af Amer >60 (>60 ml/min/1.73 sqM) Est GFR (MDRD) Non-Af >60 (>60 ml/min/1.73 sqM) Glucose 85 (74-99) mg/dL Calcium 9.2 (8.4-10.2) mg/dL Total Bilirubin 0.1 L (0.2-1.3) mg/dL AST 16 (14-36) U/L ALT 15 (9-52) U/L Alkaline Phosphatase 68 (38-126) U/L Total Protein 6.0 L (6.3-8.2) g/dL Albumin 3.7 (3.5-5.0) g/dL Amylase 63 (30-110) U/L Lipase 115 (23-300) U/L Urine Color Yellow Urine Appearance Turbid H (Clear) Urine pH 7.0 (5.0-8.0) Ur Specific [place] 1.019 (1.001-1.035) Urine Protein Trace H (Negative) Urine Glucose (UA) Negative (Negative) Urine Ketones Negative (Negative) Urine Blood Negative (Negative) Urine Nitrite Negative (Negative) Urine Bilirubin Negative (Negative) Urine Urobilinogen 2.0 (<2.0) mg/dL Ur Leukocyte Esterase Negative (Negative) Ur Squamous Epith Cells 22 H (0-4) /hpf Amorphous Sediment Few H (None) /hpf Urine HCG, Qual (Not Detectd) 09/17/17 Range/Units 13:14 WBC (3.8-10.6) k/uL RBC (3.80-5.40) m/uL Hgb (11.4-16.0) gm/dL Hct (34.0-46.0) % MCV (80.0-100.0) fL MCH (25.0-35.0) pg MCHC (31.0-37.0) g/dL RDW (11.5-15.5) % Plt Count (150-450) k/uL Neutrophils % % Lymphocytes % % Monocytes % % Eosinophils % % Basophils % % Neutrophils # (1.3-7.7) k/uL Lymphocytes # (1.0-4.8) k/uL Monocytes # (0-1.0) k/uL Eosinophils # (0-0.7) k/uL Basophils # (0-0.2) k/uL Hypochromasia Sodium (137-145) mmol/L Potassium (3.5-5.1) mmol/L Chloride (98-107) mmol/L Carbon Dioxide (22-30) mmol/L Anion Gap mmol/L BUN (7-17) mg/dL Creatinine (0.52-1.04) mg/dL Est GFR (MDRD) Af Amer (>60 ml/min/1.73 sqM) Est GFR (MDRD) Non-Af (>60 ml/min/1.73 sqM) Glucose (74-99) mg/dL Calcium (8.4-10.2) mg/dL Total Bilirubin (0.2-1.3) mg/dL AST (14-36) U/L ALT (9-52) U/L Alkaline Phosphatase (38-126) U/L Total Protein (6.3-8.2) g/dL Albumin (3.5-5.0) g/dL Amylase (30-110) U/L Lipase (23-300) U/L Urine Color Urine Appearance (Clear) Urine pH (5.0-8.0) Ur Specific [place] (1.001-1.035) Urine Protein (Negative) Urine Glucose (UA) (Negative) Urine Ketones (Negative) Urine Blood (Negative) Urine Nitrite (Negative) Urine Bilirubin (Negative) Urine Urobilinogen (<2.0) mg/dL Ur Leukocyte Esterase (Negative) Ur Squamous Epith Cells (0-4) /hpf Amorphous Sediment (None) /hpf Urine HCG, Qual Not Detected (Not Detectd) - Radiology Data Radiology results: report reviewed Disposition Clinical Impression: Vomiting Disposition: HOME SELF-CARE Condition: Good Instructions: Acute Nausea and Vomiting (ED) Additional Instructions: Patient advised to follow-up with primary care physician. Take nausea medicine as directed. Return to the emergency department if any alarming signs or symptoms occur. Prescriptions: Albuterol Inhaler [Ventolin Hfa Inhaler] 1 - 2 puff INHALATION Q6HR PRN #1 inhaler PRN Reason: Shortness Of Breath Famotidine [Pepcid] 20 mg PO HS #20 tablet methylPREDNISolone Dose Pack [Medrol Dose Pack] 4 mg PO DIRECTED #21 package Ondansetron Odt [Zofran Odt] 4 mg PO Q8HR PRN #12 tab PRN Reason: Nausea Referrals: Tomas Mcfarland MD [Primary Care Provider] - 1-2 days Time of Disposition: 14:54
[2017-09-17 13:30] LABS: Basophils % (A) 1 %; Eosinophils # (A) 0.2 k/uL (0-0.7); Eosinophils % (A) 3 %; HCT 34.5 % (34.0-46.0); HGB 10.5 gm/dL (11.4-16.0); Hypochromasia Slight; Lymphocytes # (A) 2.1 k/uL (1.0-4.8); Lymphocytes % (A) 28 %; MCH 27.3 pg (25.0-35.0); MCHC 30.6 g/dL (31.0-37.0); MCV 89.3 fL (80.0-100.0); Mean Platelet Volume 7.3; Monocytes # (A) 0.4 k/uL (0-1.0); Monocytes % (A) 5 %; Neutrophils # (A) 4.7 k/uL (1.3-7.7); Neutrophils % (A) 61 %; Platelet Count 305 k/uL (150-450); RBC 3.86 m/uL (3.80-5.40); RDW 15.5 % (11.5-15.5); WBC 7.6 k/uL (3.8-10.6)
[2017-09-17 13:32] LABS: Amorphous Sediment,Urine Few /hpf; Appearance,Urine Turbid (Clear); Bilirubin,Urine Negative (Negative); Blood,Urine Negative (Negative); Color,Urine Yellow; Glucose,Urine (UA) Negative (Negative); Ketones,Urine Negative (Negative); Leukocyte Esterase,Urine Negative (Negative); Nitrite,Urine Negative (Negative); Protein,Urine Trace (Negative); Specific Gravity,Urine 1.019 (1.001-1.035); Squamous Epithelial Cell,Urine 22 /hpf (0-4)
[2017-09-17 13:39] LABS: ALT 15 U/L (9-52); AST 16 U/L (14-36); Albumin 3.7 g/dL (3.5-5.0); Alkaline Phosphatase 68 U/L (38-126); Amylase 63 U/L (30-110); Anion Gap 8 mmol/L; Blood Urea Nitrogen 13 mg/dL (7-17); Calcium 9.2 mg/dL (8.4-10.2); Carbon Dioxide 25 mmol/L (22-30); Chloride 109 mmol/L (98-107); Glucose 85 mg/dL (74-99); Lipase 115 U/L (23-300); Potassium 3.8 mmol/L (3.5-5.1); Sodium 142 mmol/L (137-145); Total Bilirubin 0.1 mg/dL (0.2-1.3)
--- NOTE | 2017-09-17 14:04 | XR ---
Abdomen HISTORY: Nausea and vomiting View of the abdomen submitted and correlated prior CT abdomen pelvis 08/14/2017 The lung bases are remarkable for minimal residual patchy density in the right middle lobe. There is no bowel obstruction or pneumoperitoneum. No pathologic calcification. Bone mineralization is normal. IMPRESSION: Improvement in patient's right middle lobe pneumonia.
--- NOTE | 2017-09-17 14:06 | XR ---
EXAMINATION TYPE: XR chest 2V DATE OF EXAM: 09/17/2017 COMPARISON: CT 08/14/2017 HISTORY: Left upper quadrant pain, pneumonia TECHNIQUE: Frontal and lateral views of the chest are obtained. FINDINGS: There is minimal residual airspace disease in the right middle lobe. No pneumothorax or pl eural effusion. Cardiac mediastinal silhouette, pulmonary vascularity and juliette within normal limits. Patient is rotated. IMPRESSION: Improvement in aeration.
[2017-09-17] MEDS ORDERED: ONDANSETRON 4 MG ODT STARTER PACK 2 TAB BTL PO STA (14:53)
[2017-09-17 15:21] VITALS: BP 104/59; PULSE 79; RESP 18; TEMP 98.1
== END 2017-09-17 15:37 | disposition home or self-care (01) ==
LOC: EC 12:02
DX: R11.10 Vomiting, unspecified (principal); R06.2 Wheezing; R53.1 Weakness; R53.83 Other fatigue; R05 Cough; R68.83 Chills (without fever); F41.9 Anxiety disorder, unspecified; F17.200 Nicotine dependence, unspecified, uncomplicated; Z79.899 Other long term (current) drug therapy
CPT/HCPCS: 36415; 94640; 80053; 82150; 83690; 85025; 81001; 81025; 71046; 74018; 99284; 96374; 96375; 96361 ×2; J2405; J1885

== ENCOUNTER 2018-12-02 17:36 | Emergency (ER) | payer OTHER ==
[2018-12-02 17:48] VITALS: RESP 16
[2018-12-02] MEDS ORDERED: MORPHINE SULFATE 4 MG/ML SYRINGE IVP STA (18:02)
[2018-12-02 18:34] LABS: Basophils # (A) 0.1 k/uL (0-0.2); Basophils % (A) 1 %; Eosinophils # (A) 0.3 k/uL (0-0.7); Eosinophils % (A) 4 %; HCT 43.6 % (34.0-46.0); HGB 13.6 gm/dL (11.4-16.0); Lymphocytes # (A) 2.2 k/uL (1.0-4.8); Lymphocytes % (A) 26 %; MCH 29.1 pg (25.0-35.0); MCHC 31.2 g/dL (31.0-37.0); MCV 93.4 fL (80.0-100.0); Mean Platelet Volume 6.9; Monocytes # (A) 0.2 k/uL (0-1.0); Monocytes % (A) 3 %; Neutrophils # (A) 5.4 k/uL (1.3-7.7); Neutrophils % (A) 65 %; Platelet Count 340 k/uL (150-450); RBC 4.67 m/uL (3.80-5.40); RDW 14.1 % (11.5-15.5); WBC 8.4 k/uL (3.8-10.6)
[2018-12-02 18:43] LABS: Appearance,Urine Clear (Clear); Bilirubin,Urine Negative (Negative); Blood,Urine Negative (Negative); Color,Urine Light Yellow; Glucose,Urine (UA) Negative (Negative); Ketones,Urine Negative (Negative); Leukocyte Esterase,Urine Negative (Negative); Nitrite,Urine Negative (Negative); Protein,Urine Negative (Negative); Specific Gravity,Urine 1.006 (1.001-1.035); Urobilinogen,Urine <2.0 mg/dL (<2.0)
[2018-12-02 18:57] LABS: ALT 16 U/L (9-52); AST 20 U/L (14-36); Alkaline Phosphatase 71 U/L (38-126); Amylase 93 U/L (30-110); Anion Gap 8 mmol/L; Blood Urea Nitrogen 10 mg/dL (7-17); Calcium 9.8 mg/dL (8.4-10.2); Carbon Dioxide 27 mmol/L (22-30); Chloride 106 mmol/L (98-107); Glucose 79 mg/dL (74-99); Lipase 111 U/L (23-300); Sodium 141 mmol/L (137-145); Total Bilirubin 0.3 mg/dL (0.2-1.3)
--- NOTE | 2018-12-02 19:39 | US ---
EXAMINATION TYPE: US transvaginal DATE OF EXAM: 12/02/2018 COMPARISON: CT, US CLINICAL HISTORY: Pain. Pelvic pain x 1 day. Hx ovarian cyst. . TECHNIQUE: Transvaginal (TV). Date of LMP: 11/16/2018 EXAM MEASUREMENTS: Uterus: 7.5 x 5.0 x 2.9 cm Endometrial Stripe: 0.26 cm Right Ovary: 2.9 x 2.2 x 2.4 cm Left Ovary: 3.4 x 2.1 x 2.3 cm 1. Uterus: Anteverted appears wnl 2. Endometrium: appears wnl 3. Right Ovary: Multiple subcentimeter anechoic areas seen. 4. Left Ovary: Multiple anechoic areas seen. Largest measurin.2 x 0.9 x 0.7 cm. Spectral, color and waveform doppler imaging shows good arterial and venous flow within the ovaries ; there is no evidence for ovarian torsion. 5. Bilateral Adnexa: Anechoic area seen adjacent to right ovary: 1.1 x 1.2 x 0.7 cm. 6. Posterior cul-de-sac: appears wnl Beta-hCG status unknown at time of imaging. IMPRESSION: No acute process.
--- NOTE | 2018-12-02 20:07 | ED ---
Abdominal Pain HPI - General Chief Complaint: Abdominal Pain Stated Complaint: ABD PAIN Time Seen by Provider: 12/02/18 17:45 Source: patient, EMS Mode of arrival: EMS Limitations: no limitations - History of Present Illness Initial Comments: 33-year-old female presenting today for chief complaint abdominal pain. Patient states is in the left lower abdomen. She states it feels like her left ovary. She states she has had extensive workup at [facility] including negative test 2 days prior. Pt states the pain is sharp. Denies dysuria urgency frequency vaginal discharge. She states she is currently menstruating. Pt denies chest pain, upper abdominal pain or shortness of breath. Pt state tylenol and ibuprofen are not working at home. Pt denies fever, chills, diarrhea, constipation, melena, hematochezia. Upon arrival pt appears well, no acute distress. Remaining ROS (-). - Related Data Home Medications Medication Instructions Recorded Confirmed PARoxetine [Paxil] 20 mg PO DAILY 06/28/17 12/02/18 Acetaminophen [Tylenol] 650 mg PO Q8H 12/02/18 12/02/18 Ibuprofen [Motrin Ib] 400 mg PO Q12HR 12/02/18 12/02/18 Norgestimate-Ethinyl Estradiol 1 tab PO DAILY 12/02/18 12/02/18 [Tri-Sprintec Tablet] busPIRone HCL [Buspar] 7.5 mg PO BID 12/02/18 12/02/18 Allergies Allergy/AdvReac Type Severity Reaction Status Date / Time No Known Allergies Allergy Verified 12/02/18 18:05 Review of Systems ROS Statement: Those systems with pertinent positive or pertinent negative responses have been documented in the HPI. ROS Other: All systems not noted in ROS Statement are negative. Past Medical History Past Medical History: Hypertension, Thyroid Disorder Additional Past Medical History / Comment(s): Ovarian cysts History of Any Multi-Drug Resistant Organisms: None Reported Past Surgical History: Tonsillectomy Past Psychological History: Anxiety Smoking Status: Current every day smoker Past Alcohol Use History: None Reported Past Drug Use History: Marijuana General Exam - General Exam Comments Initial Comments: General: The patient is awake and alert, in no distress, and does not appear acutely ill. Eye: +3 mm pupils are equal, round and reactive to light, extra-ocular movements are intact. No nystagmus. There is normal conjunctiva bilaterally. No signs of icterus. Ears, nose, mouth and throat: There are moist mucous membranes and no oral lesions. Neck: The neck is supple, there is no tenderness or JVD. Cardiovascular: There is a regular rate and rhythm. No murmur, rub or gallop is appreciated. Respiratory: Lungs are clear to auscultation, respirations are non-labored, breath sounds are equal. No wheezes, stridor, rales, or rhonchi. Gastrointestinal: Soft, non-distended, tender to palpation of left pelvic region, no lower abdominal pain, no upper abdominal pain, no masses or organomegaly noted. There is no rebound or guarding present. No CVA tenderness. Bowel sounds are unremarkable. Musculoskeletal: Normal ROM, no tenderness. Strength 5/5. Sensation intact. Radial pulses equal bilaterally 2+. Neurological: A&O x 3. CN II-XII intact, There are no obvious motor or sensory deficits. Coordination appears grossly intact. Speech is normal. Skin: Skin is warm and dry and no rashes or lesions are noted. Psychiatric: Cooperative, appropriate mood & affect, normal judgment. Limitations: no limitations Course Vital Signs 12/02/18 17:40 Temperature 98.2 F Pulse Rate 72 Respiratory 16 Rate Blood Pressure 139/72 O2 Sat by Pulse 98 Oximetry Medical Decision Making - Medical Decision Making 3-year-old female presenting today for chief complaint of abdominal pain. Patient states she has had multiple workups at [facility] this week. Patient denies . Patient states she was told she had cysts. Patient is unsure of the size of the cyst. Patient states she had left lower pelvic pain. Patient currently menstruating. Upon examination. Patient has pain to deep palpation of the left pelvic region there is no tenderness to light palpation. No rigidity no guarding or signs of peritoneal irritation. Pt does not appears toxic nor acutely ill. Pt given pain medications. IVF. US abdomen WNL. Small cysts b/l all measuring < 2cm with no free fluid. Good blood flow to ovaries. Laboratory studies reveal no leukocytosis. Remaining WNL. UA WNL. HCG (-). CT obtained to r/o ddx of abdominal process vs pelvic. CT in negative. Pt demanding me prescribe her at home narcotics. Stating it is my job. At this time I feel masking pain with narcotics is inappropriate and recommend outpatient f/u with primary care provider, with return for persistent or worsening symptoms. - Lab Data Result diagrams: 12/02/18 18:22 12/02/18 18:22 Lab Results 12/02/18 12/02/18 12/02/18 Range/Units 18:22 18:22 18:23 WBC 8.4 (3.8-10.6) k/uL RBC 4.67 (3.80-5.40) m/uL Hgb 13.6 (11.4-16.0) gm/dL Hct 43.6 (34.0-46.0) % MCV 93.4 (80.0-100.0) fL MCH 29.1 (25.0-35.0) pg MCHC 31.2 (31.0-37.0) g/dL RDW 14.1 (11.5-15.5) % Plt Count 340 (150-450) k/uL Neutrophils % 65 % Lymphocytes % 26 % Monocytes % 3 % Eosinophils % 4 % Basophils % 1 % Neutrophils # 5.4 (1.3-7.7) k/uL Lymphocytes # 2.2 (1.0-4.8) k/uL Monocytes # 0.2 (0-1.0) k/uL Eosinophils # 0.3 (0-0.7) k/uL Basophils # 0.1 (0-0.2) k/uL Sodium 141 (137-145) mmol/L Potassium 4.0 (3.5-5.1) mmol/L Chloride 106 (98-107) mmol/L Carbon Dioxide 27 (22-30) mmol/L Anion Gap 8 mmol/L BUN 10 (7-17) mg/dL Creatinine 0.59 (0.52-1.04) mg/dL Est GFR (CKD-EPI)AfAm >90 (>60 ml/min/1.73 sqM) Est GFR (CKD-EPI)NonAf >90 (>60 ml/min/1.73 sqM) Glucose 79 (74-99) mg/dL Calcium 9.8 (8.4-10.2) mg/dL Total Bilirubin 0.3 (0.2-1.3) mg/dL AST 20 (14-36) U/L ALT 16 (9-52) U/L Alkaline Phosphatase 71 (38-126) U/L Total Protein 8.0 (6.3-8.2) g/dL Albumin 5.0 (3.5-5.0) g/dL Amylase 93 (30-110) U/L Lipase 111 (23-300) U/L Urine Color Urine Appearance (Clear) Urine pH (5.0-8.0) Ur Specific [place] (1.001-1.035) Urine Protein (Negative) Urine Glucose (UA) (Negative) Urine Ketones (Negative) Urine Blood (Negative) Urine Nitrite (Negative) Urine Bilirubin (Negative) Urine Urobilinogen (<2.0) mg/dL Ur Leukocyte Esterase (Negative) Urine HCG, Qual Not Detected (Not Detectd) 12/02/18 Range/Units 18:23 WBC (3.8-10.6) k/uL RBC (3.80-5.40) m/uL Hgb (11.4-16.0) gm/dL Hct (34.0-46.0) % MCV (80.0-100.0) fL MCH (25.0-35.0) pg MCHC (31.0-37.0) g/dL RDW (11.5-15.5) % Plt Count (150-450) k/uL Neutrophils % % Lymphocytes % % Monocytes % % Eosinophils % % Basophils % % Neutrophils # (1.3-7.7) k/uL Lymphocytes # (1.0-4.8) k/uL Monocytes # (0-1.0) k/uL Eosinophils # (0-0.7) k/uL Basophils # (0-0.2) k/uL Sodium (137-145) mmol/L Potassium (3.5-5.1) mmol/L Chloride (98-107) mmol/L Carbon Dioxide (22-30) mmol/L Anion Gap mmol/L BUN (7-17) mg/dL Creatinine (0.52-1.04) mg/dL Est GFR (CKD-EPI)AfAm (>60 ml/min/1.73 sqM) Est GFR (CKD-EPI)NonAf (>60 ml/min/1.73 sqM) Glucose (74-99) mg/dL Calcium (8.4-10.2) mg/dL Total Bilirubin (0.2-1.3) mg/dL AST (14-36) U/L ALT (9-52) U/L Alkaline Phosphatase (38-126) U/L Total Protein (6.3-8.2) g/dL Albumin (3.5-5.0) g/dL Amylase (30-110) U/L Lipase (23-300) U/L Urine Color Light Yellow Urine Appearance Clear (Clear) Urine pH 7.0 (5.0-8.0) Ur Specific [place] 1.006 (1.001-1.035) Urine Protein Negative (Negative) Urine Glucose (UA) Negative (Negative) Urine Ketones Negative (Negative) Urine Blood Negative (Negative) Urine Nitrite Negative (Negative) Urine Bilirubin Negative (Negative) Urine Urobilinogen <2.0 (<2.0) mg/dL Ur Leukocyte Esterase Negative (Negative) Urine HCG, Qual (Not Detectd) Disposition Clinical Impression: Abdominal pain Disposition: HOME SELF-CARE Condition: Good Instructions (If sedation given, give patient instructions): Abdominal Pain (ED) Additional Instructions: Please use over the counter medications as discussed. Please follow-up with family doctor in the next 2 days. Please return to emergency room if the symptoms increase or worsen or for any other concerns. Is patient prescribed a controlled substance at d/c from ED?: No Referrals: Parag Graham DO [Primary Care Provider] - 1-2 days Time of Disposition: 21:08
--- NOTE | 2018-12-02 21:02 | CT ---
EXAMINATION TYPE: CT abdomen pelvis w con DATE OF EXAM: 12/02/2018 COMPARISON: CT 08/14/2017 HISTORY: Rt side abdomen pain. Pt states she has a history of ovarian cysts CT DLP: 530.6 mGycm Automated exposure control for dose reduction was used. TECHNIQUE: Helical acquisition of images was performed from the lung bases through the pelvis. CONTRAST: Performed without Oral Contrast and with IV Contrast, patient injected with 100 mL of Isovu e 300. FINDINGS: LUNG BASES: No significant abnormality is appreciated. LIVER/GB: No significant abnormality is appreciated. PANCREAS: No significant abnormality is seen. SPLEEN: No significant abnormality is seen. ADRENALS: No significant abnormality is seen. KIDNEYS: No significant abnormality is seen. FREE AIR: No free air is visualized. RETROPERITONEAL ADENOPATHY: None visualized REPRODUCTIVE ORGANS: No significant abnormality is seen. Tampon visualized within the vagina. No foca l adnexal findings. URINARY BLADDER: No significant abnormality is seen. PELVIC ADENOPATHY: None visualized. OSSEOUS STRUCTURES: No significant abnormality is seen. BOWEL: No significant abnormality is seen. OTHER: No acute vascular findings. IMPRESSION: NO ACUTE PROCESS.
[2018-12-02 21:30] VITALS: BP 141/90; PULSE 96; TEMP 98
== END 2018-12-02 21:29 | disposition home or self-care (01) ==
LOC: EC 17:36
DX: R10.2 Pelvic and perineal pain (principal); I10 Essential (primary) hypertension; N83.201 Unspecified ovarian cyst, right side; N83.202 Unspecified ovarian cyst, left side; F41.9 Anxiety disorder, unspecified; F17.200 Nicotine dependence, unspecified, uncomplicated; Z79.1 Long term (current) use of non-steroidal anti-inflammatories (NSAID); Z79.3 Long term (current) use of hormonal contraceptives; Z79.899 Other long term (current) drug therapy
CPT/HCPCS: 36415; 80053; 82150; 83690; 85025; 81003; 81025; 93975; 76830; 74177; 99284; 96374; J2270; Q9967

== ENCOUNTER 2019-05-03 20:41 | Emergency (ER) | payer OTHER ==
[2019-05-03] MEDS ORDERED: SODIUM CHLORIDE 0.9% 500 ML 500 ML IV ONE (20:56)
[2019-05-03] MEDS ORDERED: SODIUM CHLORIDE 0.9% 1,000 ML IV ONE (20:56)
[2019-05-03] MEDS ORDERED: ACETAMINOPHEN TAB 325 MG TAB PO STA (20:56)
--- NOTE | 2019-05-03 20:58 | ED ---
Female Urogenital HPI - General Stated complaint: Cramping/16 wks Time Seen by Provider: 05/03/19 20:49 - History of Present Illness Initial comments: 33-year-old female withmedical history of endometriosis and ovarian cysts presenting today for chief complaint of possible miscarriage per patient states she has had vaginal bleeding for the past 4 weeks she said she did not find out she was 16 weeks until yesterday. When she developed cramping. Patient states the cramping has been persistent. Patient states that she has had passage of 2 large clots today. Patient was concerned she is miscarrying presents emergency department for further evaluation. Patient states she believes she is going to have an . Patient denies any unilateral pain she states is midline. Denies dysuria urgency frequency or identifiable hematuria. Patient denies any fevers or flank pain. Patient denies any uncontrolled vomiting nausea or diarrhea. Patient denies any upper abdominal cramping she states is lower in the pelvic region midline remaining review systems negative. Patient does have established [employer] care with Dr. Mccord in [place] - Related Data Home Medications Medication Instructions Recorded Confirmed PARoxetine [Paxil] 20 mg PO DAILY 06/28/17 12/02/18 Acetaminophen [Tylenol] 650 mg PO Q8H 12/02/18 12/02/18 Ibuprofen [Motrin Ib] 400 mg PO Q12HR 12/02/18 12/02/18 Norgestimate-Ethinyl Estradiol 1 tab PO DAILY 12/02/18 12/02/18 [Tri-Sprintec Tablet] busPIRone HCL [Buspar] 7.5 mg PO BID 12/02/18 12/02/18 Previous Rx's Medication Instructions Recorded Cephalexin [Keflex] 500 mg PO Q12HR 7 Days #14 cap 05/03/19 Allergies Allergy/AdvReac Type Severity Reaction Status Date / Time No Known Allergies Allergy Verified 12/02/18 18:05 Review of Systems ROS Statement: Those systems with pertinent positive or pertinent negative responses have been documented in the HPI. ROS Other: All systems not noted in ROS Statement are negative. Past Medical History Past Medical History: Hypertension, Thyroid Disorder Additional Past Medical History / Comment(s): Ovarian cysts History of Any Multi-Drug Resistant Organisms: None Reported Past Surgical History: Tonsillectomy Past Psychological History: Anxiety Smoking Status: Current every day smoker Past Alcohol Use History: None Reported Past Drug Use History: Marijuana General Exam - General Exam Comments Initial Comments: General: The patient is awake and alert, in no distress, and does not appear acutely ill. Eye: +3 mm pupils are equal, round and reactive to light, extra-ocular movements are intact. No nystagmus. There is normal conjunctiva bilaterally. No signs of icterus. Ears, nose, mouth and throat: There are moist mucous membranes and no oral lesions. Neck: The neck is supple, there is no tenderness or JVD. Cardiovascular: There is a regular rate and rhythm. No murmur, rub or gallop is appreciated. Respiratory: Lungs are clear to auscultation, respirations are non-labored, breath sounds are equal. No wheezes, stridor, rales, or rhonchi. Gastrointestinal: Soft, non-distended, lower midline pelvic pain to palpation no unilateral pain abdomen without masses or organomegaly noted. There is no rebound or guarding present. No CVA tenderness. Bowel sounds are unremarkable. Fleshlike external lesions of the genitalia, no ulcerations or vesicles. Patient has pink well rugated vaginal mucosa there is brown discharge in the vault. No bright red blood clots. Cervical osclosed. No cervical motion or ad nexal tenderness Neurological: A&O x 3. CN II-XII intact grossly, There are no obvious motor or sensory deficits. Coordination appears grossly intact. Speech is normal. Skin: Skin is warm and dry and no rashes or lesions are noted. Psychiatric: Cooperative, appropriate mood & affect, normal judgment. Course Vital Signs 05/03/19 20:56 Temperature 98.0 F Pulse Rate 102 H Respiratory 16 Rate Blood Pressure 134/66 O2 Sat by Pulse 99 Oximetry Medical Decision Making - Medical Decision Making 33-year-old female presented for persistent cramping passive clots in . Brown blood on physical examination. No heavy bleeding. No neck tenderness. Minimal tenderness on abdominal examination patient does not appear in distress. Patient has leukocytosis. Ultrasound does not reveal any signs of complicating process aside from shortened cervix. Patient is B+ no roving indicated however there was C antigen prostate detected on blood type. 3 pink tubes and 1 red were drawn and sent to lab as requested by lab. Patient does have significant white blood cells in the urine, no flank pain, afebrile. Possible contamination form vaginal discharge in UA, will treat for UTI, given rocephin IVP in ER then discharged with keflex. Findings discussed with patient. She is agreeable with outpatient OBGYN f/u this week for serial HCG and repeat US. Return parameters discussed and patient was discharged appearing well. He is discussed prior to discharge by attending provider Dr. Lamb is agreeable care plan he is aware patient's laboratory studies and urinalysis. - Lab Data Result diagrams: 05/03/19 21:18 05/03/19 21:18 Lab Results 05/03/19 05/03/19 05/03/19 Range/Units 21:18 21:18 21:18 WBC 16.1 H (3.8-10.6) k/uL RBC 3.70 L (3.80-5.40) m/uL Hgb 10.8 L (11.4-16.0) gm/dL Hct 34.3 (34.0-46.0) % MCV 92.5 (80.0-100.0) fL MCH 29.1 (25.0-35.0) pg MCHC 31.4 (31.0-37.0) g/dL RDW 13.4 (11.5-15.5) % Plt Count 307 (150-450) k/uL Neutrophils % 83 % Lymphocytes % 11 % Monocytes % 3 % Eosinophils % 1 % Basophils % 1 % Neutrophils # 13.3 H (1.3-7.7) k/uL Lymphocytes # 1.8 (1.0-4.8) k/uL Monocytes # 0.5 (0-1.0) k/uL Eosinophils # 0.2 (0-0.7) k/uL Basophils # 0.1 (0-0.2) k/uL Sodium 137 (137-145) mmol/L Potassium 3.4 L (3.5-5.1) mmol/L Chloride 105 (98-107) mmol/L Carbon Dioxide 24 (22-30) mmol/L Anion Gap 8 mmol/L BUN 6 L (7-17) mg/dL Creatinine 0.48 L (0.52-1.04) mg/dL Est GFR (CKD-EPI)AfAm >90 (>60 ml/min/1.73 sqM) Est GFR (CKD-EPI)NonAf >90 (>60 ml/min/1.73 sqM) Glucose 95 (74-99) mg/dL Calcium 9.4 (8.4-10.2) mg/dL Total Bilirubin 0.2 (0.2-1.3) mg/dL AST 15 (14-36) U/L ALT 9 (9-52) U/L Alkaline Phosphatase 66 (38-126) U/L Total Protein 6.2 L (6.3-8.2) g/dL Albumin 3.7 (3.5-5.0) g/dL Urine Color Urine Appearance (Clear) Urine pH (5.0-8.0) Ur Specific [place] (1.001-1.035) Urine Protein (Negative) Urine Glucose (UA) (Negative) Urine Ketones (Negative) Urine Blood (Negative) Urine Nitrite (Negative) Urine Bilirubin (Negative) Urine Urobilinogen (<2.0) mg/dL Ur Leukocyte Esterase (Negative) Urine RBC (0-5) /hpf Urine WBC (0-5) /hpf Ur Squamous Epith Cells (0-4) /hpf Amorphous Sediment (None) /hpf Urine Bacteria (None) /hpf Urine Mucus (None) /hpf Urine HCG, Qual (Not Detectd) Trichomonas Ag (Rapid) (Negative) Blood Type B Positive Blood Type Recheck B Pos Bld Type Recheck Status No Antibody Screen POSITIVE Direct Antiglob Test Negative Spec Expiration Date 05/06/2019231705/03/19 05/03/19 05/03/19 Range/Units 21:18 21:28 21:28 WBC (3.8-10.6) k/uL RBC (3.80-5.40) m/uL Hgb (11.4-16.0) gm/dL Hct (34.0-46.0) % MCV (80.0-100.0) fL MCH (25.0-35.0) pg MCHC (31.0-37.0) g/dL RDW (11.5-15.5) % Plt Count (150-450) k/uL Neutrophils % % Lymphocytes % % Monocytes % % Eosinophils % % Basophils % % Neutrophils # (1.3-7.7) k/uL Lymphocytes # (1.0-4.8) k/uL Monocytes # (0-1.0) k/uL Eosinophils # (0-0.7) k/uL Basophils # (0-0.2) k/uL Sodium (137-145) mmol/L Potassium (3.5-5.1) mmol/L Chloride (98-107) mmol/L Carbon Dioxide (22-30) mmol/L Anion Gap mmol/L BUN (7-17) mg/dL Creatinine (0.52-1.04) mg/dL Est GFR (CKD-EPI)AfAm (>60 ml/min/1.73 sqM) Est GFR (CKD-EPI)NonAf (>60 ml/min/1.73 sqM) Glucose (74-99) mg/dL Calcium (8.4-10.2) mg/dL Total Bilirubin (0.2-1.3) mg/dL AST (14-36) U/L ALT (9-52) U/L Alkaline Phosphatase (38-126) U/L Total Protein (6.3-8.2) g/dL Albumin (3.5-5.0) g/dL Urine Color Yellow Urine Appearance Cloudy H (Clear) Urine pH 6.5 (5.0-8.0) Ur Specific [place] 1.022 (1.001-1.035) Urine Protein Trace H (Negative) Urine Glucose (UA) Negative (Negative) Urine Ketones Negative (Negative) Urine Blood Large H (Negative) Urine Nitrite Negative (Negative) Urine Bilirubin Negative (Negative) Urine Urobilinogen 2.0 (<2.0) mg/dL Ur Leukocyte Esterase Large H (Negative) Urine RBC 5 (0-5) /hpf Urine WBC 138 H (0-5) /hpf Ur Squamous Epith Cells 4 (0-4) /hpf Amorphous Sediment Rare H (None) /hpf Urine Bacteria Rare H (None) /hpf Urine Mucus Occasional H (None) /hpf Urine HCG, Qual Detected (Not Detectd) Trichomonas Ag (Rapid) Negative (Negative) Blood Type Blood Type Recheck Bld Type Recheck Status Antibody Screen Direct Antiglob Test Spec Expiration Date Disposition Clinical Impression: Abdominal cramping affecting , Vaginal bleeding during , Threatened Disposition: HOME SELF-CARE Instructions (If sedation given, give patient instructions): Threatened Misc arriage (ED) Additional Instructions: Please use medication as discussed. Please follow-up with OBGYN in next 1-2 days. Repeat HCG and ultrasound within 1 week. Please return to emergency room if the symptoms increase or worsen or for any other concerns. Prescriptions: Cephalexin [Keflex] 500 mg PO Q12HR 7 Days #14 cap Is patient prescribed a controlled substance at d/c from ED?: No Referrals: Parag Graham DO [Primary Care Provider] - 1-2 days Ryan Mccord DO [REFERRING] - 1-2 days Time of Disposition: 23:48
[2019-05-03 21:37] LABS: Basophils # (A) 0.1 k/uL (0-0.2); Basophils % (A) 1 %; Eosinophils # (A) 0.2 k/uL (0-0.7); Eosinophils % (A) 1 %; HCT 34.3 % (34.0-46.0); HGB 10.8 gm/dL (11.4-16.0); Lymphocytes # (A) 1.8 k/uL (1.0-4.8); Lymphocytes % (A) 11 %; MCH 29.1 pg (25.0-35.0); MCHC 31.4 g/dL (31.0-37.0); MCV 92.5 fL (80.0-100.0); Mean Platelet Volume 7.2; Monocytes # (A) 0.5 k/uL (0-1.0); Monocytes % (A) 3 %; Neutrophils # (A) 13.3 k/uL (1.3-7.7); Neutrophils % (A) 83 %; Platelet Count 307 k/uL (150-450); RDW 13.4 % (11.5-15.5); WBC 16.1 k/uL (3.8-10.6)
[2019-05-03 21:47] LABS: ALT 9 U/L (9-52); AST 15 U/L (14-36); African American GFR (CKD) >90 (>60 ml/min/1.73 sqM); Albumin 3.7 g/dL (3.5-5.0); Alkaline Phosphatase 66 U/L (38-126); Anion Gap 8 mmol/L; Blood Urea Nitrogen 6 mg/dL (7-17); Calcium 9.4 mg/dL (8.4-10.2); Carbon Dioxide 24 mmol/L (22-30); Chloride 105 mmol/L (98-107); Glucose 95 mg/dL (74-99); Potassium 3.4 mmol/L (3.5-5.1); Sodium 137 mmol/L (137-145); Total Bilirubin 0.2 mg/dL (0.2-1.3); Total Protein 6.2 g/dL (6.3-8.2)
--- NOTE | 2019-05-03 22:39 | US ---
EXAMINATION TYPE: US OB >= 14 wk fetus DATE OF EXAM: 05/03/2019 COMPARISON: None CLINICAL HISTORY: pain Pt states cramping TECHNIQUE: Transabdominal (TA) GESTATIONAL AGE / DATING Physician Established: Not yet established Dates by LMP: (14 weeks/6 days) EDC: 10/26/2019 Dates by First Scan: No prior Dates by Current Scan: (16 weeks/5 days) EDC: 10/13/2019 SURVEY IUP: Single PLACENTA: Fundal& Posterior/ Hypoechoic, non-vascular area= 2.9 x 1.6 x 1.4 cm midline/left PREVIA: No Previa SHARDA: 10.8 cm Normal CERVICAL LENGTH (transabdominal: norm > 3.0cm): Multiple measurements taken from 2.3 cm - 2.8 cm wh ich is shortened for TA imaging Supplemental TV imaging for cervical length shows shortened cervix at 1.9 cm (norm >2.5cm) BIOMETRY PRESENTATION: Vertex BPD: 3.4 cm 16 weeks / 4 days HC: 12.7 cm 16 weeks / 4 days AC: 11.2 cm 17 weeks / 1 days FL: 2.1 cm 16 weeks / 2 days ESTIMATED WEIGHT IN GRAMS: 162 grams ESTIMATED WEIGHT IN LBS/OZ: 0 lbs. 6 oz. WEIGHT PERCENTAGE BASED ON ESTABLISHED DATES: 98% HC/AC: 1.13 Normal FL/AC: 18 Normal HEART RATE: 152 bpm RHYTHM: Normal Single, viable IUP/ Shortened cervical length both TA and TV measurement Per ER physician assess ovaries- could not be visualized due to advanced gestation IMPRESSION: There is mild shortening of the cervix that measures 1.9 cm. The ultrasound gestational age is 16 wee ks and 5 days .No evidence of placenta previa or placental abruption.
[2019-05-03 23:22] LABS: Amorphous Sediment,Urine Rare /hpf; Appearance,Urine Cloudy (Clear); Bacteria,Urine Rare /hpf; Bilirubin,Urine Negative (Negative); Blood,Urine Large (Negative); Color,Urine Yellow; Glucose,Urine (UA) Negative (Negative); Ketones,Urine Negative (Negative); Leukocyte Esterase,Urine Large (Negative); Mucus,Urine Occasional /hpf; Nitrite,Urine Negative (Negative); PH, Urine 6.5 (5.0-8.0); Protein,Urine Trace (Negative); RBC,Urine 5 /hpf (0-5); Specific Gravity,Urine 1.022 (1.001-1.035); Squamous Epithelial Cell,Urine 4 /hpf (0-4); WBC,Urine 138 /hpf (0-5)
[2019-05-03] MEDS ORDERED: cefTRIAXone IN SWFI 1,000 MG/10 ML SYRINGE IVP STA (23:51)
[2019-05-04 00:02] VITALS: BP 98/45; PULSE 79; RESP 18; TEMP 98.2
[2019-05-05 15:02] LABS: N. gonorrhoeae,PCR Negative (Neg,Equiv); Neisseria Source Vagina
[2019-05-05 15:06] LABS: C. trachomatis,PCR Negative (Neg,Equiv); Chlamydia trachomatis Source Vagina
== END 2019-05-04 00:19 | disposition home or self-care (01) ==
LOC: EC 20:41
DX: O20.0 Threatened abortion (principal); O99.89 Other specified diseases and conditions complicating pregnancy, childbirth and the puerperium; D72.829 Elevated white blood cell count, unspecified; O99.332 Smoking (tobacco) complicating pregnancy, second trimester; F17.200 Nicotine dependence, unspecified, uncomplicated; O99.342 Other mental disorders complicating pregnancy, second trimester; F41.9 Anxiety disorder, unspecified; Z79.899 Other long term (current) drug therapy; Z3A.16 16 weeks gestation of pregnancy
CPT/HCPCS: 36415; 86900 ×2; 86901 ×2; 80053; 85025; 86850 ×2; 86870 ×2; 86880 ×2; 81001; 81025; 87808; 87491; 87591; 87070; 76805; 99284; 96374; 96361 ×3; J0696

== ENCOUNTER 2019-05-19 00:28 | Observation (INO) | payer OTHER ==
[2019-05-19] MEDS ORDERED: fentaNYL (PF) 50 MCG/ML 2 ML AMP IVP PRN (00:44)
--- NOTE | 2019-05-19 01:06 | ED ---
Female Urogenital HPI - General Chief complaint: Vaginal Bleeding Stated complaint: poss miscarriage Source: patient, EMS Mode of arrival: ambulatory - History of Present Illness Initial comments: Rafa is a 33-year-old female who is female currently 18 weeks gestation who presents to the emergency department today via EMS for evaluation of vaginal bleeding. She reports that earlier this evening she believes she miscarried, she states that she passed tissue. She was having some crampi ng consistent with contractions which she is 6 parents with previous deliveries. Patient states she was trying to just ride this out at home however she was concerned about the amount of blood loss she is becoming lightheaded which prompted her call EMS. EMS reports that they found the patient sitting on a towel with approximately 300 mL of blood loss. Patient was noted to be mildly hypertensive but not tachycardic. Patient reports that this has been complicated by persistent cramping and discomfort. She was evaluated in our emergency department 16 days ago and diagnosed with a urinary tract infection. She had an ultrasound at that time confirming a single intrauterine . She had seen a nurse at Dr. Mccord's office but not seen a physician yet. - Related Data Allergies Allergy/AdvReac Type Severity Reaction Status Date / Time No Known Allergies Allergy Verified 05/19/19 03:02 Review of Systems ROS Statement: Those systems with pertinent positive or pertinent negative responses have been documented in the HPI. ROS Other: All systems not noted in ROS Statement are negative. Past Medical History Past Medical History: No Reported History, Thyroid Disorder Additional Past Medical History / Comment(s): Ovarian cysts History of Any Multi-Drug Resistant Organisms: None Reported Past Surgical History: Tonsillectomy Past Psychological History: Anxiety Smoking Status: Current every day smoker Past Alcohol Use History: None Reported Past Drug Use History: Marijuana - Past Family History Mother Family Medical History: Hypertension, Thyroid Disorder General Exam - General Exam Comments Initial Comments: Physical Exam GENERAL: Patient appears uncomfortable HENT: Normocephalic, Atraumatic. EYES: PERRL, EOMI No conjunctival pallor PULMONARY: Unlabored respirations. No audible rales rhonchi or wheezing was noted. CARDIOVASCULAR: There is a regular rate and rhythm without any murmurs gallops or rubs. Warm and well perfused extremities ABDOMEN: Soft and nontender with normal bowel sounds. Uterus is small, palpable below level of umbilicus SKIN: Skin is pale, clear with no lesions or rashes and otherwise unremarkable. : Normal external genitalia Dark blood in vaginal vault Cervix dilated to 2cm, dark clots in cervix NEUROLOGIC: Patient is alert and oriented x3. Moving all extremities spontaneously MUSCULOSKELETAL: Normal extremities with adequate strength and full range of motion. No lower extremity swelling or edema. No calf tenderness. PSYCHIATRIC: Normal psychiatric evaluation. Course Vital Signs 05/19/19 05/19/19 05/19/19 00:31 01:02 01:59 Temperature 97.9 F Pulse Rate 85 96 Respiratory 18 18 Rate Blood Pressure 91/51 86/60 96/45 O2 Sat by Pulse 100 97 100 Oximetry 05/19/19 02:34 Temperature Pulse Rate 72 Respiratory 18 Rate Blood Pressure 117/68 O2 Sat by Pulse 100 Oximetry Medical Decision Making - Medical Decision Making Patient was seen and treated immediately upon arrival the emergency department Patient was approximately 18 weeks , has been complicated by frequent contractions and a urinary tract infection On arrival the patient is hypotensive but not tachycardic having minimal pain but cramping contraction-like discomfort and vaginal bleeding Bedside ultrasound reveals no tissue in the uterus Pelvic exam with dark blood in the vaginal vault, active bleeding from the cervix, cervix dilated to approximately 1, there is large clot in the cervix, multiple attempts as were made to remove the clot using forceps and patterson swabs, normal amounts clot were able to be removed with temporary decrease in bleeding however bleeding resume. Patient care was discussed with Dr. Wahl, gynecology event specialist product demonstrator. Vital signs were discussed, pelvic exam findings as well as bedside ultrasound were discussed. Dr. Wahl requesting a formal ultrasound for evaluation of retained products. IM methargen was ordered Labor and delivery was called to deliver metal forceps for better manipulation of the cervical clot Exam with continued dark vaginal bleeding, larger Shantz clot were removed from the cervix however patient continued to have bleeding Patient care was again discussed with Dr. Wahl, at this time she is agreeable to pacing the patient in observation for further evaluation. While awaiting movement upstairs patient passed a very large blood clot and some tissue that is concerning for being placental tissue I suspect this is what was in the patient's cervix. Patient reports cramping significantly improved at this time. She was observed for approximately 30 minutes after passing the placenta, vaginal bleeding improving upon transport upstairs. - Lab Data Result diagrams: 05/19/19 01:10 05/19/19 01:10 Lab Results 05/19/19 05/19/19 05/19/19 Range/Units 01:10 01:10 01:10 WBC 17.0 H (3.8-10.6) k/uL RBC 3.26 L (3.80-5.40) m/uL Hgb 9.8 L (11.4-16.0) gm/dL Hct 29.7 L (34.0-46.0) % MCV 91.3 (80.0-100.0) fL MCH 30.2 (25.0-35.0) pg MCHC 33.1 (31.0-37.0) g/dL RDW 13.2 (11.5-15.5) % Plt Count 351 (150-450) k/uL Neutrophils % 79 % Lymphocytes % 13 % Monocytes % 3 % Eosinophils % 1 % Basophils % 0 % Neutrophils # 13.5 H (1.3-7.7) k/uL Lymphocytes # 2.2 (1.0-4.8) k/uL Monocytes # 0.5 (0-1.0) k/uL Eosinophils # 0.2 (0-0.7) k/uL Basophils # 0.1 (0-0.2) k/uL Sodium 140 (137-145) mmol/L Potassium 3.6 (3.5-5.1) mmol/L Chloride 110 H (98-107) mmol/L Carbon Dioxide 19 L (22-30) mmol/L Anion Gap 11 mmol/L BUN 12 (7-17) mg/dL Creatinine 0.46 L (0.52-1.04) mg/dL Est GFR (CKD-EPI)AfAm >90 (>60 ml/min/1.73 sqM) Est GFR (CKD-EPI)NonAf >90 (>60 ml/min/1.73 sqM) Glucose 84 (74-99) mg/dL Calcium 8.8 (8.4-10.2) mg/dL Total Bilirubin 0.1 L (0.2-1.3) mg/dL AST 19 (14-36) U/L ALT <6 L (9-52) U/L Alkaline Phosphatase 97 (38-126) U/L Total Protein 6.0 L (6.3-8.2) g/dL Albumin 3.3 L (3.5-5.0) g/dL HCG, Quant 8127.3 mIU/mL Blood Type B Positive Blood Type Recheck B Pos Bld Type Recheck Status No Antibody Screen POSITIVE Antibody Identification Not Reportable Direct Antiglob Test Negative Spec Expiration Date 05/22/2019 - 2310 Critical Care Time Critical Care Time: Yes Total Critical Care Time: 45 Critical Care Time: Critical Care Time Critical care time was exclusive of separately billable procedures and treating other patients and teaching time. Critical care was necessary to treat or prevent imminent or life-threatening deterioration. Given the critical condition in which the patient arrived, the patient was immediately assessed by myself and the nurse, and cardiac monitoring initiated due to the potential for rapid decompensation of the patient's clinical condition. During the course of the patients stay, I spent a considerable amount of time at the bedside performing serial re-evaluations of the patient's hemodynamic and clinical status because of the recognized potential threat to life or limb in this condition. I then had a chance to review not only all of th e available current laboratory and radiographic studies obtained today, but I also reviewed old records available to me at the time. Additionally, any ancillary information available including log operations coordinator records were reviewed. Sequential vital signs were obtained. Disposition Clinical Impression: Vaginal bleeding, Miscarriage, Acute blood loss anemia Disposition: ADMITTED IP TO THIS HOSP Condition: Serious
[2019-05-19] MEDS ORDERED: METHYLERGONOVINE 0.2 MG/ML 1 ML AMP IM ONE (01:15)
[2019-05-19 01:29] LABS: Basophils # (A) 0.1 k/uL (0-0.2); Basophils % (A) 0 %; Eosinophils # (A) 0.2 k/uL (0-0.7); Eosinophils % (A) 1 %; HCT 29.7 % (34.0-46.0); HGB 9.8 gm/dL (11.4-16.0); Lymphocytes # (A) 2.2 k/uL (1.0-4.8); Lymphocytes % (A) 13 %; MCH 30.2 pg (25.0-35.0); MCHC 33.1 g/dL (31.0-37.0); MCV 91.3 fL (80.0-100.0); Mean Platelet Volume 6.5; Monocytes # (A) 0.5 k/uL (0-1.0); Monocytes % (A) 3 %; Neutrophils # (A) 13.5 k/uL (1.3-7.7); Neutrophils % (A) 79 %; Platelet Count 351 k/uL (150-450); RBC 3.26 m/uL (3.80-5.40); RDW 13.2 % (11.5-15.5)
[2019-05-19 01:30] LABS: ALT <6 U/L (9-52); AST 19 U/L (14-36); African American GFR (CKD) >90 (>60 ml/min/1.73 sqM); Albumin 3.3 g/dL (3.5-5.0); Alkaline Phosphatase 97 U/L (38-126); Anion Gap 11 mmol/L; Blood Urea Nitrogen 12 mg/dL (7-17); Calcium 8.8 mg/dL (8.4-10.2); Carbon Dioxide 19 mmol/L (22-30); Chloride 110 mmol/L (98-107); Glucose 84 mg/dL (74-99); Non-African American GFR(CKD) >90 (>60 ml/min/1.73 sqM); Potassium 3.6 mmol/L (3.5-5.1); Sodium 140 mmol/L (137-145); Total Bilirubin 0.1 mg/dL (0.2-1.3)
[2019-05-19 01:46] LABS: HCG,Quantitative Serum 8127.3 mIU/mL
[2019-05-19] MEDS ORDERED: OXYTOCIN 10 UNIT/ML 1 ML VIAL IM ONE (01:56)
[2019-05-19] MEDS ORDERED: NALOXONE 0.4 MG/ML 1 ML VIAL IV PRN (02:12)
--- NOTE | 2019-05-19 02:14 | US ---
EXAMINATION TYPE: US pelvic complete DATE OF EXAM: 05/19/2019 COMPARISON: US OB >=14 weeks on 05/03/19 CLINICAL HISTORY: miscarriage. Miscarriage. Patient was 18 weeks . Hx ovarian cysts and previ ous miscarriage. TECHNIQUE: Transabdominal (TA). Transabdominal sonographic images of the pelvis were acquired. Date of LMP: Unknown EXAM MEASUREMENTS: Uterus: 10.6 x 10.3 x 7.9 cm Endometrial Stripe: not clearly distinguished Right Ovary: not seen Left Ovary: not seen 1. Uterus: Heterogeneous/complex within endometrium. 2. Endometrium: Indistinct borders. Heterogeneous. 3. Right Ovary: not seen 4. Left Ovary: not seen 5. Bilateral Adnexa: limited evaluation 6. Posterior cul-de-sac: appears wnl *Limited exam due to pain. Patient refused transvaginal imaging. IMPRESSION: Heterogeneous thickening of the endometrium. No evidence of a gestational sac. Findings could relate to some retained products of conception and b lood clot in this patient with a history of miscarriage.
[2019-05-19] MEDS ORDERED: BUTORPHANOL 1 MG/ML 1 ML VIAL IV PRN (03:10)
[2019-05-19] MEDS ORDERED: OXYTOCIN 20 UNITS/1000 ML NS 1,000 ML IV SCH (03:15)
[2019-05-19 03:26] VITALS: BMI 21.4
[2019-05-19] MEDS ORDERED: IBUPROFEN 600 MG TAB PO STA (07:51)
--- NOTE | 2019-05-19 07:59 | P.HPOB ---
History of Present Illness H&P Date: 05/19/19 Chief Complaint: I miscarried at home This is a 33-year-old white female 3 para 10-1 LMP uncertain, patient said to be approximately 17-19 weeks gestation. She presented with a history of having passed the fetus at home, stating that it flushed down the toilet. Her bleeding was somewhat heavy with small clot passage. Patient has care established by Dr. Mccord. Past medical history significant for endometriosis and ruptured ovarian cysts. Past surgical history tonsillectomy and adenoidectomy as a child. Current medications buspirone and Paxil, patient states she stopped both when becoming . ALLERGIES none known. Social history patient is single, she does not work, she smokes one pack per day of tobacco since age 19, and marijuana daily. She denies any other drug or alcohol use. Family history is unremarkable. On exam she is 5 foot 4 inches, 120 pounds, pulse 80, respirations 12, temperature 98.8, 100% O2 saturation, blood pressure 97/44. The general physical exam is within normal limits. Extremities reveal no edema. Chest is clear in all seymour. Abdomen is soft and nontender, scaphoid. Pelvic exam reveals scant vaginal bleeding at this time, uterus is approximately 8-10 weeks size, mobile, smooth, nontender. Adnexa negative bilaterally. Impression: Status post miscarriage at home, initial bleeding somewhat brisk, resolving now after Methergine and Pitocin having been received. Hb 9.8 Plan: Patient at this time would like to go home. I will advance her diet and we will allow her to shower. She will follow-up with Dr. Mccord in the office within 2 weeks. If bleeding should increase, or clot passage should occur, she is instructed to come back. Ultrasound however reveals a small uterus measuring 10.6 x 10.3 x 7.9 cm, indistinct borders of the endometrium but no obvious fluid or tissue. Patient at this time denies lightheadedness or dizziness, and is asking to be discharged home. Review of Systems Constitutional: Reports as per HPI Past Medical History Past Medical History: No Reported History, Thyroid Disorder Additional Past Medical History / Comment(s): Ovarian cysts History of Any Multi-Drug Resistant Organisms: None Reported Past Surgical History: Tonsillectomy Past Anesthesia/Blood Transfusion Reactions: No Reported Reaction Past Psychological History: Anxiety Smoking Status: Current every day smoker Past Alcohol Use History: None Reported Past Drug Use History: Marijuana - Past Family History Mother Family Medical History: Hypertension, Thyroid Disorder Medications and Allergies Allergies Allergy/AdvReac Type Severity Reaction Status Date / Time No Known Allergies Allergy Verified 05/19/19 03:02 Exam Vital Signs Temp Pulse Pulse Resp BP BP Pulse Ox 05/19/19 05:22 81 12 84/46 05/19/19 04:58 98 F 69 12 91/44 99 05/19/19 04:28 78 12 101/53 05/19/19 04:13 77 12 95/44 05/19/19 03:58 82 12 100/47 05/19/19 03:43 74 12 96/40 05/19/19 03:28 98.8 F 80 12 97/44 05/19/19 03:02 98.8 F 80 12 97/44 100 05/19/19 02:34 72 18 117/68 100 05/19/19 01:59 96 18 96/45 100 05/19/19 01:02 86/60 97 05/19/19 00:31 97.9 F 85 18 91/51 100 Intake and Output 05/18/19 05/19/19 05/19/19 22:59 06:59 14:59 Output Total 200 Balance -200 Output: Urine 200 Other: # Voids 1 Weight 54.431 kg See dictation under HPI please Results Result Diagrams: 05/19/19 01:10 05/19/19 01:10 Abnormal Lab Results - Last 24 Hours (Table) 05/19/19 05/19/19 Range/Units 01:10 01:10 WBC 17.0 H (3.8-10.6) k/uL RBC 3.26 L (3.80-5.40) m/uL Hgb 9.8 L (11.4-16.0) gm/dL Hct 29.7 L (34.0-46.0) % Neutrophils # 13.5 H (1.3-7.7) k/uL Chloride 110 H (98-107) mmol/L Carbon Dioxide 19 L (22-30) mmol/L Creatinine 0.46 L (0.52-1.04) mg/dL Total Bilirubin 0.1 L (0.2-1.3) mg/dL ALT <6 L (9-52) U/L Total Protein 6.0 L (6.3-8.2) g/dL Albumin 3.3 L (3.5-5.0) g/dL Assessment and Plan Assessment: Status post complete AB, patient stable, bleeding scant, patient requesting discharge home. Rh+ status. Plan: Nothing per vagina. Continue taking vitamin daily. Ferrous sulfate o nce daily for mild anemia. Follow-up with Dr. Mccord within 1-2 weeks.
--- NOTE | 2019-05-19 08:03 | P.DS ---
Providers Date of admission: 05/19/19 02:13 Attending physician: Alem Wahl Primary care physician: Parag Graham [facility] Course: This is a 33-year-old white female 3 para 10-1 who presented to the emergency room after having passed a fetus at home which she states flushed down the toilet. She had brisk vaginal bleeding and was evaluated. Ultrasound revealed a small uterus measuring 10.6 x 10.3 x 7.9 cm with an endometrial stripe not clearly distinguished, but no evidence of retained products of conception noted. She was given Methergine, 1 ampule IM in the emergency room and was brought to labor and delivery for further evaluation. 20 units of Pitocin was placed in a liter of fluid and this was given. Cramping has resolved, bleeding at this time is very scant. Patient denies pain and is requesting discharge home. Blood type is Rh+. Hemoglobin stable at 9.8. Vital signs are now stable and patient has remained afebrile. Please see dictated history and physical for details. Bedside pelvic exam reveals a small mobile nontender uterus, approximately 8-10 weeks size. Adnexa negative bilaterally. Very scant vaginal bleeding is noted. Patient denies pain and again is requesting discharge home. She will follow-up with Dr. Mccord in the office in 1-2 weeks. I reminded her to continue taking her vitamin daily and to add an additional iron pill [id number] daily. Call with any fevers shakes or chills, foul smelling or copious vaginal bleeding, or with any pain not alleviated by ibuprofen products. I have discussed with her the contraception of course is an issue and she states she will discuss this further with Dr. Mccord. Patient Condition at Discharge: Stable Plan - Discharge Summary Discharge Rx Participant: No Follow up Appointment(s)/Referral(s): Parag Graham DO [Primary Care Provider] - 1-2 days Discharge Disposition: HOME SELF-CARE
[2019-05-19 08:21] VITALS: BP 95/51; PULSE 80; RESP 15; TEMP 97.4
== END 2019-05-19 08:16 | disposition home or self-care (01) ==
LOC: EC 00:28 → 4FBP 02:13
PROVIDERS: ADMIT Obstetrics & Gynecology; ATTEND Obstetrics & Gynecology
DX: O03.9 Complete or unspecified spontaneous abortion without complication (principal); O03.6 Delayed or excessive hemorrhage following complete or unspecified spontaneous abortion; D62 Acute posthemorrhagic anemia; F17.210 Nicotine dependence, cigarettes, uncomplicated; I95.9 Hypotension, unspecified; E07.9 Disorder of thyroid, unspecified; F41.9 Anxiety disorder, unspecified; Z87.440 Personal history of urinary (tract) infections; Z87.42 Personal history of other diseases of the female genital tract; Z82.49 Family history of ischemic heart disease and other diseases of the circulatory system; Z83.49 Family history of other endocrine, nutritional and metabolic diseases
CPT/HCPCS: 96375; 96372; 96374; 99291; 36415; 86900; 86901; 88305; 86902; 80053; 85025; 86850; 86870 ×2; 86880 ×2; 84702; 86905; 86906; 76856; G0378; J2210; J0595; J3010; J2590

== ENCOUNTER → 2020-07-25 | Outpatient (CLI) | payer OTHER ==
[2020-07-25 11:23] LABS: Basophils % (A) 1 %; Eosinophils # (A) 0.3 k/uL (0-0.7); Eosinophils % (A) 5 %; HGB 13.4 gm/dL (11.4-16.0); Lymphocytes # (A) 2.2 k/uL (1.0-4.8); Lymphocytes % (A) 36 %; MCH 29.3 pg (25.0-35.0); MCHC 31.3 g/dL (31.0-37.0); MCV 93.6 fL (80.0-100.0); Mean Platelet Volume 7.8; Monocytes # (A) 0.3 k/uL (0-1.0); Monocytes % (A) 5 %; Neutrophils # (A) 3.1 k/uL (1.3-7.7); Neutrophils % (A) 50 %; Platelet Count 258 k/uL (150-450); RBC 4.59 m/uL (3.80-5.40); RDW 13.9 % (11.5-15.5); WBC 6.1 k/uL (3.8-10.6)
== END | disposition home or self-care (01) ==
LOC: LABPAT 11:03
PROVIDERS: ATTEND Obstetrics & Gynecology
DX: Z01.818 Encounter for other preprocedural examination (principal)
CPT/HCPCS: 85025

== ENCOUNTER 2020-08-01 10:36 | Day surgery (SDC) | payer OTHER ==
[2020-07-25 14:32] VITALS: BMI 22.3
[~2020-08-01 10:36] MED LIST: DEXAMETHASONE SOD PHOSPHATE 4 MG/ML 1 ML VIAL IV ONE; LIDOCAINE 1% (10MG/ML) FOR IV START INTRADERMA PRN; ONDANSETRON 4 MG/2 ML VIAL IVP ONE; Pre Op ABX Message 1 EACH MISC MISCELLANE ONE
[2020-08-01] MEDS: LACTATED RINGERS 1,000 ML IV SCH ×2 (11:02→11:51)
[2020-08-01] MEDS ORDERED: ONDANSETRON 4 MG/2 ML VIAL ONE (11:05)
[2020-08-01] MEDS ORDERED: DEXAMETHASONE SOD PHOSPHATE 4 MG/ML 1 ML VIAL IVP ONE (11:10)
[2020-08-01] MEDS ORDERED: NEOSTIGMINE 1 MG/ML 10 ML VIAL ONE (11:49)
[2020-08-01] MEDS ORDERED: MIDAZOLAM 2 MG/2 ML VIAL ONE (11:49)
[2020-08-01] MEDS ORDERED: ROCURONIUM 10 MG/ML (10 ML VIAL) IV ONE (11:49)
[2020-08-01] MEDS ORDERED: SUCCINYLCHOLINE CHLORIDE 100 MG/5 ML SYR IV ONE (11:49)
[2020-08-01] MEDS ORDERED: PROPOFOL 10 MG/ML 20 ML VIAL IV ONE (11:49)
[2020-08-01] MEDS ORDERED: fentaNYL (PF) 50 MCG/ML 2 ML AMP ONE (11:49)
[2020-08-01] MEDS ORDERED: LIDOCAINE 1% INJ 10MG/ML (20 ML MDV) ONE (11:49)
[2020-08-01] MEDS ORDERED: GLYCOPYRROLATE 0.2 MG/ML 2 ML VIAL ONE (11:49)
[2020-08-01] MEDS ORDERED: KETOROLAC 15 MG/ML 1 ML VIAL ONE (11:49)
[2020-08-01] MEDS ORDERED: BUPIVACAINE (PF) 0.5% 30 ML VIAL SQ ONE (12:17)
[2020-08-01] MEDS ORDERED: SIMETHICONE 80 MG CHEWABLE PO PRN (12:20)
[2020-08-01] MEDS ORDERED: diphenhydrAMINE 50 MG/ML 1 ML VIAL IVP PRN (12:20)
[2020-08-01] MEDS ORDERED: METOCLOPRAMIDE 5 MG/ML 2 ML VIAL IVP PRN (12:20)
[2020-08-01] MEDS ORDERED: IBUPROFEN 600 MG TAB PO PRN (12:20)
[2020-08-01] MEDS ORDERED: KETOROLAC 15 MG/ML 1 ML VIAL IVP PRN (12:20)
[2020-08-01] MEDS ORDERED: ONDANSETRON 4 MG/2 ML VIAL IVP PRN (12:20)
[2020-08-01] MEDS ORDERED: Acetaminophen-Codeine 300-30mg TAB PO PRN ×2 (12:20)
--- NOTE | 2020-08-01 12:26 | P.OP ---
Date of Procedure: 08/01/20 Preoperative Diagnosis: #1. Multiparity #2. Undesired fertility Postoperative Diagnosis: Same Procedure(s) Performed: 1. Laparoscopic bilateral tubal occlusion with Filshie clips Anesthesia: SIMEON Surgeon: Zackary Hutchinson Estimated Blood Loss (ml): 5 IV fluids (ml): 250 Urine output (ml): 0 Pathology: none sent Condition: stable Disposition: PACU Operative Findings: Preoperative pelvic examination demonstrated a 4 week anteverted mobile normal shaped uterus with normal adnexa bilaterally. Intraoperatively, these findings were confirmed with a small normal anteverted uterus with normal tubes and ovaries bilaterally. There is no evidence of any pathology within the pelvis to include endometriosis. There was one unusual a Ni vessel running from what appeared to be the sigmoid colon to the medial side of the ovary which was very small in nature but nonetheless left alone. The small and large intestine as well as the appendix were normal to inspection as was the liver, gallbladder and diaphragm where it could be seen. Description of Procedure: The patient was prepped and draped in usual fashion after general endotracheal anesthesia was administered by the anesthesiologist. A speculum was placed and the anterior lip the surface of the signal 2 tenaculum allowing placement of an acorn cannula for manipulation. Bladder was catheterized for perhaps 2 drops of clear jacoby urine which was counted a 0 area and attention was turned to the abdomen where a 5 mm incision was made in the vertical fold of the umbilicus allowing insertion of a 5 mm optical port under direct vision is afebrile without difficulty. A pneumoperitoneum was then insufflated. Trendelenburg positioning was utilized to approximate 4-5 cm above the pubic symphysis in the midline where an 8 mm incision was made in the transverse plane allowing insertion of an 8 mm port under direct visualization without difficulty. Trendelenburg positioning was utilized with blunt probe to sweep the bowel from the pelvis and the findings were normal as noted above. The probe was replaced with a Filshie clip applicator which was utilized to place a clip approximately 2-3 cm from the cornu across the full thickness of the isthmic portion of the right fallopian tube where it was firmly affixed. A similar operation was carried out on the left. After ensuring no further pathology and the pelvis as noted above, the upper abdomen was examined with no findings also is noted above. The entire pneumoperitoneum was evacuated through the 2 ports and the ports removed. The incisions were closed with interrupted subcuticular stitches of 4-0 Vicryl followed by half-inch Steri-Strips with Mastisol. The 2 incisions were infused with a total of 10 mL of half percent Marcaine without epinephrine equally divided between the 2 incisions. Estimated blood loss for the entire case was less than 5 mL. There were no complications. All sponge, instrument, and needle counts were correct. The patient tolerated the procedure well and proceeded to the recovery room in stable condition.
[2020-08-01] MEDS ORDERED: LACTATED RINGERS 1,000 ML IV SCH (12:30)
[2020-08-01] MEDS: HYDROmorphone 0.5 MG/0.5 ML SYRINGE IVP PRN ×3 (12:36→13:07)
[2020-08-01 12:43] VITALS: TEMP 97.6
[2020-08-01 13:29] VITALS: RESP 16
[2020-08-01 14:36] VITALS: BP 110/75; PULSE 73
== END 2020-08-01 14:36 | disposition home or self-care (01) ==
LOC: OR 10:36
PROVIDERS: ATTEND Obstetrics & Gynecology
DX: Z30.2 Encounter for sterilization (principal); Z64.1 Problems related to multiparity; D64.9 Anemia, unspecified; F17.210 Nicotine dependence, cigarettes, uncomplicated; Z98.890 Other specified postprocedural states; Z80.1 Family history of malignant neoplasm of trachea, bronchus and lung; Z80.3 Family history of malignant neoplasm of breast; Z82.49 Family history of ischemic heart disease and other diseases of the circulatory system; F41.9 Anxiety disorder, unspecified
CPT/HCPCS: 81025; 58671; J2250; J1100; J2710; J2405; J2001; J3010; J1885; J0330; J2704; J1170